=== PATIENT | male | born 1935 | race Caucasian/White ===

== ENCOUNTER 2018-05-13 20:12 | Emergency (ER) | payer OTHER ==
--- OUTSIDE RECORDS SUMMARY | 2018-05-13 20:14 | XMS REPORT | Clinical Summary ---
:1935 Author Organization [facility] Address [address] [place] [address] Phone Care Team Providers Name Role Phone Unavailable Primary Care Provider Unavailable Allergies No Known Allergies Current Medications Prescription Sig. Disp. Refills Start Date End Date Status donepezil (ARICEPT) 10 Take 10 mg by mouth Active MG tablet nightly. aspirin 81 MG EC tablet Take 81 mg by mouth Active daily. atorvastatin (LIPITOR) Take 20 mg by mouth Active 20 MG tablet daily. citalopram (CELEXA) 40 Take 40 mg by mouth Active MG tablet daily. cyanocobalamin 1000 MCG Take 1,000 mcg by Active tablet mouth daily. lisinopril-hydrochloroth Take 1 tablet by Active iazide mouth daily. (PRINZIDE,ZESTORETIC) 10-12.5 mg per tablet meclizine (ANTIVERT) 25 Take 12.5 mg by Active MG tablet mouth 3 (three) times daily as needed. prazosin (MINIPRESS) 2 Take 4 mg by mouth Active MG capsule nightly. Missing or Non-Formulary Take 0.125 mg by Active Medication mouth every 4 (four) hours Hycosamine 0.125 mg, 0.5 tablet every 4 hours.. pantoprazole (PROTONIX) Take 1 tablet (40 mg 0 12/21/2015 Active 40 MG tablet total) by mouth daily. 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
[2018-05-13] MEDS ORDERED: ONDANSETRON 4 MG/2 ML VIAL ONE (21:06)
[2018-05-13] MEDS ORDERED: NA CHLORIDE 0.9% 500 ML ONE (21:06)
[2018-05-13 21:07] LABS: Absolute Lymphocytes (CBC) 1.9 K/uL (0.7-4.9); Absolute Monocytes 0.6 K/uL (0.1-1.3); Absolute Neutrophil 5.7 K/uL (1.8-8.0); Basophils % 0.5 % (0-1.3); Eosinophils % 1.7 % (0-4.4); Hematocrit 41.2 % (39.6-49.0); Lymphocytes % 22.4 % (15.3-44.8); MPV 7.7 fL (7.6-11.3); Monocytes % 7.7 % (3.3-12.3); RBC Red Blood Cell Count 4.74 M/uL (4.33-5.43)
[2018-05-13 21:26] LABS: Albumin 3.4 g/dL (3.4-5.0); Bilirubin Total 0.7 mg/dL (0.2-1.0); Potassium 4.1 mmol/L (3.5-5.1); Protein, Total 7.1 g/dL (6.4-8.2)
--- NOTE | 2018-05-13 23:04 | ER ---
Nurse's Notes [facility] Name: Nikita Mcclure Sr Age: 82 yrs Sex: Male : 1935 Arrival Date: 05/13/2018 Time: 20:19 Bed 20 Private MD: Diagnosis: Diarrhea, unspecified Presentation: 05/13 20:37 Presenting complaint: Patient states: "My diarrhea I have normally because of all my jd3 surgeries, has gotten worse over the last couple of days." EMS states: " he says he has been having some diarrhea for a while now. only pain he is reporting is the chronic wrist, back, and ankle pain.". Transition of care: patient was not received from another setting of care. Onset of symptoms was May 13, 2018. Risk Assessment: Do you want to hurt yourself or someone else? Patient reports no desire to harm self or others. Initial Sepsis Screen: Does the patient meet any 2 criteria? No. Patient's initial sepsis screen is negative. Does the patient have a suspected source of infection? No. Patient's initial sepsis screen is negative. Care prior to arrival: None. 20:37 Method Of Arrival: EMS: [facility] jd3 20:37 Acuity: MICKEY 3 jd3 Historical: - Allergies: 20:43 No Known Allergies; jd3 - Home Meds: 20:43 aspirin 81 mg Oral tab 1 tab once daily [Active]; lisinopril-hydrochlorothiazide jd3 10-12.5 mg Oral tab 1 tab once daily [Active]; 21:59 atorvastatin 80 mg oral tab 1 tab once daily [Active]; buspirone 10 mg Oral tab 1 tab 3 jd3 times per day [Active]; citalopram 40 mg tab 0.5 tab once daily [Active]; donepezil 10 mg Oral tab 1 tab once daily [Active]; meclizine 12.5 mg Oral tab 1 tabs 3 times per day [Active]; omeprazole 20 mg oral TbEC 20 mg daily [Active]; prazosin 2 mg Oral cap 2 caps nightly [Active]; trazodone 100 mg oral tab 1 tab nightly [Active]; cholecalciferol (vitamin D3) 400 unit oral tab three times a day [Active]; diclofenac sodium 1 % topical gel twice a day [Active]; lidocaine 5 % topical ptmd 1 patch once daily [Active]; naloxone nasal nasal 1 spray as needed [Active]; nutrition supl ensure 1 drink 1 can twice a day [Active]; trazodone 50 mg Oral tab 0.5 tab 2 times per day [Active]; - PMHx: 20:43 Anemia; Hyperlipidemia; Hypertension; Head injury; insomnia; Anxiety; Dementia; jd3 Depression; GERD; Vertigo; - PSHx: 20:43 back surgery; brain surgery; abd sx; jd3 21:59 abd stent; jd3 - Immunization history:: Adult Immunizations up to date, Flu vaccine is up to date. - Social history:: Smoking status: Patient/guardian denies using tobacco. - Ebola Screening: : Patient negative for fever greater than or equal to 101.5 degrees Fahrenheit, and additional compatible Ebola Virus Disease symptoms. Screenin:44 Abuse screen: Denies threats or abuse. Nutritional screening: No deficits noted. jd3 Tuberculosis screening: No symptoms or risk factors identified. Fall Risk Ambulatory Aid- Crutches/Cane/Walker (15 pts). Gait- Weak (10 pts.). Mental Status- Oriented to own ability (0 pts). Total Wilkinson Fall Scale indicates Low Risk Score (25-44 pts). Fall prevention measures have been instituted. Side Rails Up X 2 Placed close to Nursing Station Frequent Obs/Assesments occuring Family Present and informed to notify staff if they need to leave bedside. Assessment: 20:45 General: Appears in no apparent distress. uncomfortable, Behavior is cooperative, jd3 appropriate for age, anxious. Pain: Complains of pain in wrist, ankles, back Quality of pain is described as aching, Is chronic. Neuro: Level of Consciousness is awake, alert, obeys commands, Oriented to person, place, time, situation. Cardiovascular: Capillary refill < 3 seconds Patient's skin is warm and dry. Respiratory: Airway is patent Respiratory effort is even, unlabored, Respiratory pattern is regular, symmetrical. GI: Abdomen is round Bowel sounds present X 4 quads. Abd is soft and non tender X 4 quads. Reports diarrhea, nausea. : No signs and/or symptoms were reported regarding the genitourinary system. EENT: No signs and/or symptoms were reported regarding the EENT system. Derm: Skin is intact, Skin is dry, Skin is normal, Skin temperature is warm. Musculoskeletal: Circulation, motion, and sensation intact. Range of motion: intact in all extremities. 21:34 Reassessment: Patient appears in no apparent distress at this time. No changes from jd3 previously documented assessment. Patient and/or family updated on plan of care and expected duration. Pain level reassessed. Patient is alert, oriented x 3, equal unlabored respirations, skin warm/dry/pink. 22:26 Reassessment: Patient appears in no apparent distress at this time. No changes from jd3 previously documented assessment. Patient and/or family updated on plan of care and expected duration. Pain level reassessed. Patient is alert, oriented x 3, equal unlabored respirations, skin warm/dry/pink. 23:23 Reassessment: Patient appears in no apparent distress at this time. Patient and/or jd3 family updated on plan of care and expected duration. Pain level reassessed. Patient is alert, oriented x 3, equal unlabored respirations, skin warm/dry/pink. reported understanding of discharge instructions. Vital Signs: 20:43 BP 149 / 95; Pulse 68; Resp 17 S; Temp 98.3(O); Pulse Ox 97% on R/A; Weight 105.23 kg jd3 (R); Height 6 ft. 1 in. (185.42 cm) (R); Pain 5/10; 21:33 BP 126 / 54; Pulse 64; Resp 16 S; Pulse Ox 97% on R/A; jd3 22:26 BP 118 / 59; Pulse 60; Resp 17 S; Pulse Ox 97% on R/A; jd3 20:43 Body Mass Index 30.61 (105.23 kg, 185.42 cm) jd3 ED Course: 20:19 Patient arrived in ED. ds1 20:19 Robbie Dawkins MD is Attending Physician. tw4 20:36 Estiven Christensen RN is Primary Nurse. jd3 20:40 Triage completed. jd3 20:44 Arm band placed on. jd3 20:45 Patient has correct armband on for positive identification. Placed in gown. Bed in low jd3 position. Call light in reach. Side rails up X2. Adult w/ patient. 20:55 Inserted saline lock: 22 gauge in right antecubital area, using aseptic technique. jd3 Blood collected. 22:12 Warm blanket given. Pillow given. jd3 23:23 No provider procedures requiring assistance completed. IV discontinued, intact, jd3 bleeding controlled, No redness/swelling at site. Pressure dressing applied. Administered Medications: 21:06 Drug: Zofran 4 mg Route: IVP; Site: right antecubital; jd3 22:12 Follow up: Response: No adverse reaction jd3 21:07 Drug: NS 0.9% 500 ml Route: IV; Rate: bolus; Site: right antecubital; jd3 23:25 Follow up: Response: No adverse reaction; IV Status: Completed infusion; IV Intake: jd3 500ml Intake: 23:25 IV: 500ml; Total: 500ml. jd3 Outcome: 23:03 Discharge ordered by . tw4 23:24 Discharged to home via wheelchair, with family. jd3 23:24 Condition: stable 23:24 Discharge instructions given to patient, Instructed on discharge instructions, follow up and referral plans. medication usage, Demonstrated understanding of instructions, follow-up care, medications, Prescriptions given X 1. 23:25 Patient left the ED. jd3 Signatures: Kasey Lambert ds1 Estiven Christensen RN RN jd3 Robbie Dawkins MD MD tw4 Corrections: (The following items were deleted from the chart) 20:43 Home Meds: atorvastatin 20 mg Oral tab 1 tab nightly; jd3 jd3 20:43 Home Meds: buspirone 10 mg Oral tab 1 tab 3 times per day; jd3 jd3 59 20:43 Home Meds: citalopram 40 mg tab 1 tab once daily; jd3 jd3 59 20:43 Home Meds: cyanocobalamin (vitamin B-12) 1,000 mcg Oral tab daily for Anemia; jd3 jd3 59 20:43 Home Meds: donepezil 10 mg Oral tab 0.5 tab once daily; jd3 jd3 20:43 Home Meds: Hycosamine 0.125 mg 0.5 tab every 4 hours; jd3 jd3 2159 20:43 Home Meds: meclizine 12.5 mg Oral tab 3 tabs 3 times per day; jd3 jd3 20:43 Home Meds: omeprazole 20 mg Oral cpDR 2 caps once daily; jd3 jd3 59 20:43 Home Meds: prazosin 2 mg Oral cap 2 caps nightly; jd3 jd3 59 20:43 Home Meds: trazodone 150 mg Oral tab 1 tab nightly; jd3 jd3
--- NOTE | 2018-05-13 23:04 | EDPHYS ---
Physician Documentation [facility] Name: Nikita Mcclure Sr Age: 82 yrs Sex: Male : 1935 Arrival Date: 05/13/2018 Time: 20:19 Bed 20 Private MD: ED Physician Robbie Dawkins HPI: 05/14 03:48 This 82 yrs old Male presents to ER via EMS with complaints of Abdominal tw4 Pain, Diarrhea. 03:48 The patient presents to the emergency department with diarrhea. Onset: The tw4 symptoms/episode began/occurred 6 month(s) ago. Possible causes: unknown. The symptoms are aggravated by nothing. The symptoms are alleviated by nothing. Associated signs and symptoms: The patient has no apparent associated signs or symptoms. Severity of symptoms: At their worst the symptoms were moderate in the emergency department the symptoms are unchanged. The patient has not experienced similar symptoms in the past. Historical: - Allergies: 05/13 20:43 No Known Allergies; jd3 - Home Meds: 20:43 aspirin 81 mg Oral tab 1 tab once daily [Active]; lisinopril-hydrochlorothiazide jd3 10-12.5 mg Oral tab 1 tab once daily [Active]; 21:59 atorvastatin 80 mg oral tab 1 tab once daily [Active]; buspirone 10 mg Oral tab 1 tab 3 jd3 times per day [Active]; citalopram 40 mg tab 0.5 tab once daily [Active]; donepezil 10 mg Oral tab 1 tab once daily [Active]; meclizine 12.5 mg Oral tab 1 tabs 3 times per day [Active]; omeprazole 20 mg oral TbEC 20 mg daily [Active]; prazosin 2 mg Oral cap 2 caps nightly [Active]; trazodone 100 mg oral tab 1 tab nightly [Active]; cholecalciferol (vitamin D3) 400 unit oral tab three times a day [Active]; diclofenac sodium 1 % topical gel twice a day [Active]; lidocaine 5 % topical ptmd 1 patch once daily [Active]; naloxone nasal nasal 1 spray as needed [Active]; nutrition supl ensure 1 drink 1 can twice a day [Active]; trazodone 50 mg Oral tab 0.5 tab 2 times per day [Active]; - PMHx: 20:43 Anemia; Hyperlipidemia; Hypertension; Head injury; insomnia; Anxiety; Dementia; jd3 Depression; GERD; Vertigo; - PSHx: 20:43 back surgery; brain surgery; abd sx; jd3 21:59 abd stent; jd3 - Immunization history:: Adult Immunizations up to date, Flu vaccine is up to date. - Social history:: Smoking status: Patient/guardian denies using tobacco. - Ebola Screening: : Patient negative for fever greater than or equal to 101.5 degrees Fahrenheit, and additional compatible Ebola Virus Disease symptoms. ROS: 05/14 03:48 Constitutional: Negative for fever, chills, and weight loss, Cardiovascular: Negative tw4 for chest pain, palpitations, and edema, Respiratory: Negative for shortness of breath, cough, wheezing, and pleuritic chest pain, Back: Negative for injury and pain, MS/Extremity: Negative for injury and deformity, Skin: Negative for injury, rash, and discoloration, Neuro: Negative for headache, weakness, numbness, tingling, and seizure. Abdomen/GI: Positive for diarrhea, Negative for abdominal pain, nausea and vomiting, nausea, vomiting, and diarrhea, nausea, vomiting. Exam: 03:48 Constitutional: This is a well developed, well nourished patient who is awake, alert, tw4 and in no acute distress. Head/Face: Normocephalic, atraumatic. Chest/axilla: Normal chest wall appearance and motion. Nontender with no deformity. No lesions are appreciated. Cardiovascular: Regular rate and rhythm with a normal S1 and S2. No gallops, murmurs, or rubs. Normal PMI, no JVD. No pulse deficits. Respiratory: Lungs have equal breath sounds bilaterally, clear to auscultation and percussion. No rales, rhonchi or wheezes noted. No increased work of breathing, no retractions or nasal flaring. Abdomen/GI: Soft, non-tender, with normal bowel sounds. No distension or tympany. No guarding or rebound. No evidence of tenderness throughout. Back: No spinal tenderness. No costovertebral tenderness. Full range of motion. MS/ Extremity: Pulses equal, no cyanosis. Neurovascular intact. Full, normal range of motion. Neuro: Awake and alert, GCS 15, oriented to person, place, time, and situation. Cranial nerves II-XII grossly intact. Motor strength 5/5 in all extremities. Sensory grossly intact. Cerebellar exam normal. Normal gait. Vital Signs: 05/13 20:43 BP 149 / 95; Pulse 68; Resp 17 S; Temp 98.3(O); Pulse Ox 97% on R/A; Weight 105.23 kg jd3 (R); Height 6 ft. 1 in. (185.42 cm) (R); Pain 5/10; 21:33 BP 126 / 54; Pulse 64; Resp 16 S; Pulse Ox 97% on R/A; jd3 22:26 BP 118 / 59; Pulse 60; Resp 17 S; Pulse Ox 97% on R/A; jd3 20:43 Body Mass Index 30.61 (105.23 kg, 185.42 cm) jd3 MDM: 20:19 Patient medically screened. tw4 05/14 03:48 Data reviewed: vital signs, nurses notes. Data interpreted: Pulse oximetry: tw4 Interpretation: normal. Counseling: I had a detailed discussion with the patient and/or guardian regarding: the historical points, exam findings, and any diagnostic results supporting the discharge/admit diagnosis. 04:01 Differential diagnosis: Nonspecific abd pain, gastritis. Special discussion: I tw4 discussed with the patient/guardian in detail that at this point there is no indication for admission to the hospital. It is understood, however, that if the symptoms persist or worsen the patient needs to return immediately for re-evaluation. 05/13 20:21 Order name: CBC with Diff; Complete Time: 21:52 tw4 05/13 20:21 Order name: CMP; Complete Time: 21:52 tw4 05/13 21:53 Interpretation: Normal except: BUN 22; GFR 64. tw4 05/13 20:21 Order name: Saline Lock; Complete Time: 20:58 tw4 Administered Medications: 05/13 21:06 Drug: Zofran 4 mg Route: IVP; Site: right antecubital; jd3 22:12 Follow up: Response: No adverse reaction jd3 21:07 Drug: NS 0.9% 500 ml Route: IV; Rate: bolus; Site: right antecubital; jd3 23:25 Follow up: Response: No adverse reaction; IV Status: Completed infusion; IV Intake: jd3 500ml Disposition: 05/13/18 23:03 Discharged to Home. Impression: Diarrhea, unspecified. - Condition is Stable. - Discharge Instructions: Diarrhea, Adult. - Prescriptions for Lomotil 2.5- 0.025 mg Oral Tablet - take 2 tablet by ORAL route once daily As needed; 20 tablet. - Medication Reconciliation Form, Thank You Letter, Antibiotic Education, Prescription Opioid Use form. - Follow up: Private Physician; When: Upon discharge from the Emergency Department; Reason: Recheck today's complaints, Continuance of care. - Problem is new. - Symptoms have improved. Signatures: Dispatcher [employer] Estiven Elizalde RN RN [email or web address] Robbie Dawkins MD MD tw4 Corrections: (The following items were deleted from the chart) 21:59 20:43 Home Meds: atorvastatin 20 mg Oral tab 1 tab nightly; [place] [id number] 21:59 20:43 Home Meds: buspirone 10 mg Oral tab 1 tab 3 times per day; [place] [id number] 21:59 20:43 Home Meds: citalopram 40 mg tab 1 tab once daily; [facility] j 21:59 20:43 Home Meds: cyanocobalamin (vitamin B-12) 1,000 mcg Oral tab daily for Anemia; [facility] jd3 21:59 20:43 Home Meds: donepezil 10 mg Oral tab 0.5 tab once daily; [facility] j 21:59 20:43 Home Meds: Hycosamine 0.125 mg 0.5 tab every 4 hours; [facility] j 21:59 20:43 Home Meds: meclizine 12.5 mg Oral tab 3 tabs 3 times per day; [facility] j 21:59 20:43 Home Meds: omeprazole 20 mg Oral cpDR 2 caps once daily; [facility] j 21:59 20:43 Home Meds: prazosin 2 mg Oral cap 2 caps nightly; [facility] j 21:59 20:43 Home Meds: trazodone 150 mg Oral tab 1 tab nightly; [facility] j 23:25 23:03 05/13/2018 23:03 Discharged to Home. Impression: Diarrhea, unspecified. Condition jd3 is Stable. Forms are Medication Reconciliation Form, Thank You Letter, Antibiotic Education, Prescription Opioid Use. Follow up: Private Physician; When: Upon discharge from the Emergency Department; Reason: Recheck today's complaints, Continuance of care. Problem is new. Symptoms have improved. tw4
== END 2018-05-13 23:25 | disposition home or self-care (01) ==
LOC: ER 20:12
DX: R19.7 Diarrhea, unspecified (principal); I10 Essential (primary) hypertension; E78.5 Hyperlipidemia, unspecified; F41.9 Anxiety disorder, unspecified; F32.9 Major depressive disorder, single episode, unspecified; F03.90 Unspecified dementia, unspecified severity, without behavioral disturbance, psychotic disturbance, mood disturbance, and anxiety; Z79.82 Long term (current) use of aspirin
CPT/HCPCS: 36415; 80053; 85025; 96361; 96374; 99284; J2405

== ENCOUNTER 2018-10-28 18:28 | Inpatient (IN) | payer OTHER ==
--- OUTSIDE RECORDS SUMMARY | 2018-10-28 18:30 | XMS REPORT | Clinical Summary ---
:1935 Author Organization [facility] Address [address] [place] [address] Care Team Providers Name Role Phone Brennen Wiseman Primary Care Provider Allergies No Known Allergies Medications Medication Sig Dispensed Refills Start Date End Date Status donepezil (ARICEPT) 10 Take 10 mg by 0 Active MG tablet mouth nightly. aspirin 81 MG EC Take 81 mg by 0 Active tablet mouth daily. atorvastatin (LIPITOR) Take 20 mg by 0 Active 20 MG tablet mouth daily. citalopram (CELEXA) 40 Take 40 mg by 0 Active MG tablet mouth daily. cyanocobalamin 1000 Take 1,000 mcg by 0 Active MCG tablet mouth daily. lisinopril-hydrochloro Take 1 tablet by 0 Active thiazide mouth daily. (PRINZIDE,ZESTORETIC) 10-12.5 mg per tablet meclizine (ANTIVERT) Take 12.5 mg by 0 Active 25 MG tablet mouth 3 (three) times daily as needed. prazosin (MINIPRESS) 2 Take 4 mg by mouth 0 Active MG capsule nightly. Missing or Take 0.125 mg by 0 Active Non-Formulary mouth every 4 Medication (four) hours Hycosamine 0.125 mg, 0.5 tablet every 4 hours.. pantoprazole Take 1 tablet (40 0 12/21/2015 Active (PROTONIX) 40 MG mg total) by mouth tablet daily. Active Problems Problem Noted Date Leukocytosis 12/13/2015 Hypokalemia 12/13/2015 Cholelithiasis 12/13/2015 Pancreatitis 12/12/2015 Dementia Anxiety GERD (gastroesophageal reflux disease) Depression Social History Tobacco Use Types Packs/Day Years Used Date Never Smoker Smokeless Tobacco: Never Used Tobacco Cessation: Counseling Given: No Alcohol Use Drinks/Week oz/Week Comments No Sex Assigned at Date Recorded Not on file Job Start Date Occupation Industry Not on file Not on file Not on file Travel History Travel Start Travel End No recent travel history available. 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 Shelf Model / Identifier Expiration Serial / Lot Date Stent Panc Advx St [id number] - [id number] Stents-Pe [employer] [id number] / Implanted: Qty: 1 on 12/16/2015 by Aayush Canchola MD [facility] / [id number] Results Not on fileafter 10/27/2017 Insurance Payer Benefit Plan / Group Subscriber ID Type Phone Address MEDICARE MEDICARE A B xxxxxxxxxx Medicare AETNA - [employer]GD CARE A[employer] INDEMNITY NON CONTR xxxxxxxxx [address] [place] [address] Advance Directives For more information, please contact:[address] [phone] Code Status Date Activated Date Inactivated Comments Full Code 12/12/2015 10:10 AM 12/22/2015 7:47 PM This code status was determined by: Patient
--- NOTE | 2018-10-28 20:31 | RAD REPORT ---
EXAM DESCRIPTION: RAD - Chest Single View - 10/28/2018 8:23 pm CLINICAL HISTORY: MALAISE Chest pain. COMPARISON: CHEST PA AND LAT 2 VIEW dated 10/22/2008 FINDINGS: Portable technique limits examination quality. The lungs are grossly clear. The heart is normal in size. No displaced fractures. IMPRESSION: No acute intrathoracic process suspected.
[2018-10-28 20:33] LABS: Absolute Lymphocytes (CBC) 1.4 K/uL (0.7-4.9); Absolute Neutrophil 14.6 K/uL (1.8-8.0); Basophils % 0.6 % (0-1.3); Eosinophils % 0.2 % (0-4.4); Hematocrit 36.9 % (39.6-49.0); Lymphocytes % 8.2 % (15.3-44.8); MPV 7.6 fL (7.6-11.3); Monocytes % 5.8 % (3.3-12.3); RBC Red Blood Cell Count 4.32 M/uL (4.33-5.43)
[2018-10-28 20:34] LABS: Urine RBC NONE SEEN /HPF (NONE SEEN)
[2018-10-28 20:35] LABS: Urine Bacteria 20-50 /HPF (NONE SEEN); Urine Culture Reflex Order REFLEXED
[2018-10-28 20:36] LABS: Protime INR 1.28
[2018-10-28 20:55] LABS: ALT/SGPT 29 U/L (12-78); AST/SGOT 25 U/L (15-37); Albumin 2.1 g/dL (3.4-5.0); Alkaline Phosphatase 81 U/L (45-117); BUN Blood Urea Nitrogen 40 mg/dL (7-18); Bicarbonate 30 mmol/L (21-32); Bilirubin Direct 0.2 mg/dL (0-0.2); Bilirubin Total 0.7 mg/dL (0.2-1.0); Glucose Level 130 mg/dL (74-106); NT PRO-BNP 588 pg/mL (<450); Protein, Total 6.5 g/dL (6.4-8.2); Sodium Level 134 mmol/L (136-145); Troponin (Emerg Dept Use Only) < 0.02 ng/mL (0.0-0.045)
[2018-10-28 21:04] LABS: Potassium 2.9 mmol/L (3.5-5.1)
[2018-10-28 21:11] LABS: Urine Blood NEGATIVE (NEG); Urine Glucose NEGATIVE (NEG); Urine Protein NEGATIVE (NEG); Urine pH 5.5 (5.0-7.0)
[2018-10-28 21:11] LABS: Blood Morphology Comment NOT SEEN (NOT SEEN); Platelet Estimate ADEQ
[2018-10-28] MEDS ORDERED: POTASSIUM 25 MEQ EFFERV TAB ONE (21:24)
[2018-10-28] MEDS ORDERED: NA CHLORIDE 0.9% 1,000 ML ONE (22:31)
--- NOTE | 2018-10-28 23:58 | EDPHYS ---
Physician Documentation [facility] Name: Nikita Mcclure Sr Age: 83 yrs Sex: Male : 1935 Arrival Date: 10/28/2018 Time: 18:31 Bed 16 Private MD: ED Physician Stuart Kendall HPI: 10/28 23:50 This 83 yrs old Male presents to ER via Wheelchair with complaints of gs Decreased Appetite, Fatigue. 23:50 The patient presents to the emergency department with weakness of the entire body, gs generalized weakness. Onset: The symptoms/episode began/occurred gradually, 3 week(s) ago, and became worse and became persistent. Associated signs and symptoms: Pertinent positives: weakness. Severity of symptoms: At their worst the symptoms were moderate in the emergency department the symptoms are unchanged. The patient has experienced similar episodes in the past, multiple times. Historical: - Allergies: 18:41 No Known Allergies; ss - Home Meds: 23:10 allopurinol 100 mg Oral tab 1 tab once daily [Active]; aspirin 81 mg Oral tab 1 tab aa1 once daily [Active]; buspirone 10 mg Oral tab 1 tab 3 times per day [Active]; cholecalciferol (vitamin D3) 400 unit Oral tab 3 tab daily [Active]; citalopram 40 mg tab 0.5 tab once daily [Active]; diclofenac sodium 1 % Topical gel twice a day [Active]; ezetimibe oral oral 1 tab once daily [Active]; lisinopril-hydrochlorothiazide 10-12.5 mg Oral tab 1 tab once daily [Active]; [place] 5-325 mg Oral tab 1 tab every 8 hours [Active]; lidocaine 5 % Topical ptmd 1 patch once daily [Active]; meclizine 12.5 mg Oral tab 1 tabs 3 times per day [Active]; naloxone nasal 1 spray as needed [Active]; omega-3 acid ethyl esters 1 gram oral cap 2 caps 2 times per day [Active]; omeprazole 20 mg Oral TbEC 20 mg daily [Active]; prazosin 2 mg Oral cap 2 caps nightly [Active]; trazodone 100 mg Oral tab 1 tab nightly [Active]; trazodone 50 mg Oral tab 0.5 tab 2 times per day [Active]; nutrition supl ensure 1 drink 1 can twice a day [Active]; - PMHx: 18:41 Anemia; Anxiety; Dementia; Depression; GERD; Head injury; Hyperlipidemia; Hypertension; ss insomnia; Vertigo; - PSHx: 18:41 back surgery; brain surgery; abd stent; ss - Immunization history:: Adult Immunizations up to date. - Social history:: Smoking status: Patient/guardian denies using tobacco. - Ebola Screening: : Patient denies exposure to infectious person Patient denies travel to an Ebola-affected area in the 21 days before illness onset. ROS: 23:50 All other systems are negative. gs Exam: 23:50 Head/Face: Normocephalic, atraumatic. Eyes: Pupils equal round and reactive to light, gs extra-ocular motions intact. Lids and lashes normal. Conjunctiva and sclera are non-icteric and not injected. Cornea within normal limits. Periorbital areas with no swelling, redness, or edema. ENT: Nares patent. No nasal discharge, no septal abnormalities noted. Tympanic membranes are normal and external auditory canals are clear. Oropharynx with no redness, swelling, or masses, exudates, or evidence of obstruction, uvula midline. Mucous membranes moist. Neck: Trachea midline, no thyromegaly or masses palpated, and no cervical lymphadenopathy. Supple, full range of motion without nuchal rigidity, or vertebral point tenderness. No Meningismus. Chest/axilla: Normal chest wall appearance and motion. Nontender with no deformity. No lesions are appreciated. Cardiovascular: Regular rate and rhythm with a normal S1 and S2. No gallops, murmurs, or rubs. Normal PMI, no JVD. No pulse deficits. Respiratory: Lungs have equal breath sounds bilaterally, clear to auscultation and percussion. No rales, rhonchi or wheezes noted. No increased work of breathing, no retractions or nasal flaring. 23:50 Back: No spinal tenderness. No costovertebral tenderness. Full range of motion. Skin: Warm, dry with normal turgor. Normal color with no rashes, no lesions, and no evidence of cellulitis. Neuro: Awake and alert, GCS 15, oriented to person, place, time, and situation. Cranial nerves II-XII grossly intact. Motor strength 5/5 in all extremities. Sensory grossly intact. Cerebellar exam normal. Normal gait. 23:50 Constitutional: The patient appears alert, awake. 23:50 Abdomen/GI: Inspection: obese Palpation: mild abdominal tenderness, in all quadrants, rebound tenderness, is not appreciated. 23:50 Musculoskeletal/extremity: Pulses: are normal with no appreciated deficits, Edema, 1+ to the left ankle and right ankle is noted. Vital Signs: 18:41 BP 105 / 52; Pulse 96; Resp 16; Temp 98.0(TE); Pulse Ox 97% on R/A; Weight 105.23 kg; ss Height 6 ft. 1 in. (185.42 cm); Pain 8/10; 19:42 BP 129 / 51; Pulse 85; Resp 18; Pulse Ox 95% on R/A; aa1 20:31 BP 122 / 63; Pulse 74; Resp 16; Pulse Ox 99% on R/A; mt 21:21 BP 134 / 63; Pulse 76; Resp 18; Pulse Ox 97% on R/A; aa1 22:45 BP 119 / 62; Pulse 76; Resp 16; Temp 98.1; Pulse Ox 95% on R/A; Pain 0/10; aa1 23:38 BP 122 / 65; Pulse 73; Resp 18; Pulse Ox 97% on R/A; aa1 10/29 00:30 BP 117 / 60; Pulse 69; Resp 16; Temp 97.9; Pulse Ox 97% on R/A; Pain 0/10; aa1 10/28 18:41 Body Mass Index 30.61 (105.23 kg, 185.42 cm) ss MDM: 10/28 19:50 Patient medically screened. gs 23:50 Data reviewed: vital signs, nurses notes. Data reviewed: old medical records, lab test gs result(s), EKG, radiologic studies, and as a result, I will admit patient. Response to treatment: the patient's symptoms have mildly improved after treatment. 10/28 19:49 Order name: Basic Metabolic Panel; Complete Time: 21:48 aa10/28 19:49 Order name: CBC with Diff; Complete Time: 21:48 aa10/28 19:49 Order name: LFT's; Complete Time: 21:48 aa10/28 19:49 Order name: Magnesium; Complete Time: 21:48 aa10/28 19:49 Order name: NT PRO-BNP; Complete Time: 21:48 [facility] 10/28 19:49 Order name: PT-INR; Complete Time: 21:48 [facility] 10/28 19:49 Order name: Troponin (emerg Dept Use Only); Complete Time: 21:48 [facility] 10/28 19:51 Order name: Urine Microscopic Only; Complete Time: 21:48 10/28 21:51 Interpretation: Abnormal. 10/28 20:35 Order name: Urine Dipstick--Ancillary (enter results) ar 10/28 20:37 Order name: Urine Culture [facility] 10/28 20:43 Order name: Manual Differential; Complete Time: 21:48 EDMS 10/28 21:55 Order name: Blood Culture* 10/29 00:17 Order name: CBC with Automated Diff [facility] 10/29 00:17 Order name: Comprehensive Metabolic Panel [facility] 10/28 19:49 Order name: XRAY Chest (1 view); Complete Time: 21:48 [facility] 10/28 19:49 Order name: EKG; Complete Time: 19:50 [facility] 10/28 19:49 Order name: Cardiac monitoring; Complete Time: 20:15 [facility] 10/28 19:49 Order name: EKG - Nurse/Tech; Complete Time: 20:01 [facility] 10/28 19:49 Order name: IV Saline Lock; Complete Time: 22:43 [facility] 10/28 19:49 Order name: Labs collected and sent; Complete Time: 20:15 [facility] 10/28 19:49 Order name: O2 Per Protocol; Complete Time: 20:01 [facility] 10/28 19:49 Order name: O2 Sat Monitoring; Complete Time: 20:02 [facility] 10/28 19:51 Order name: Urine Dipstick-Ancillary (obtain specimen); Complete Time: 20:15 10/29 00:17 Order name: CONS Pharmacy Consult [facility] 10/29 00:17 Order name: NPO [facility] 10/29 00:17 Order name: Dietitian Consult [facility] Administered Medications: 21:16 Drug: K-Lyte Effervescent Tablet 50 mEq Route: PO; aa1 22:42 Follow up: Response: No adverse reaction aa1 22:42 Drug: NS 0.9% 1000 ml Route: IV; Rate: 1 bolus; Site: right antecubital; aa1 23:30 Follow up: IV Status: Completed infusion aa1 Disposition: 10/28/18 23:58 Hospitalization ordered by Corey Nascimento for Observation. Preliminary diagnosis is Dehydration. - Bed requested for Telemetry/MedSurg (observation). - Status is Observation. iw - Condition is Stable. - Problem is new. - Symptoms have improved. UTI on Admission? Yes Signatures: Dispatcher [employer] EDKala Rudolph RN RN Zeina Hernandez RN RN aa1 Bita Mahmood RN RN bb Williams, Irene, RN RN Annalisa Anderson RN RN Stuart Kendall MD MD Corrections: (The following items were deleted from the chart) 23:59 23:58 Hospitalization Ordered by Corey Nascimento MD for Observation. Preliminary bb diagnosis is Dehydration. Bed requested for Telemetry/MedSurg (observation). Status is Observation. Condition is Stable. Problem is new. Symptoms have improved. UTI on Admission? Yes. 10/29 06:32 10/28 23:59 10/28/2018 23:58 Hospitalization Ordered by Corey Nascimento MD for Observation. Preliminary diagnosis is Dehydration. Bed requested for [facility] ER HOLD. Status is Observation. Condition is Stable. Problem is new. Symptoms have improved. UTI on Admission? Yes. bb 10/29 07:58 06:32 10/28/2018 23:58 Hospitalization Ordered by Corey Nascimento MD for Observation. iw Preliminary diagnosis is Dehydration. Bed requested for Telemetry/MedSurg (observation). Status is Observation. Condition is Stable. Problem is new. Symptoms have improved. UTI on Admission? Yes. kl
--- NOTE | 2018-10-28 23:58 | ER ---
Nurse's Notes [facility] Name: Nikita Mcclure Sr Age: 83 yrs Sex: Male : 1935 Arrival Date: 10/28/2018 Time: 18:31 Bed 16 Private MD: Diagnosis: Dehydration Presentation: 10/28 18:39 Presenting complaint: states: Decreased appetite, N/V/D and fatigue that began 1 ss month ago. Transition of care: patient was not received from another setting of care. Onset of symptoms was September 2018. Risk Assessment: Do you want to hurt yourself or someone else? Patient reports no desire to harm self or others. Initial Sepsis Screen: Does the patient meet any 2 criteria? HR > 90 bpm. Does the patient have a suspected source of infection? No. Patient's initial sepsis screen is negative. Care prior to arrival: None. 18:39 Method Of Arrival: Wheelchair ss 18:39 Acuity: MICKEY 3 ss Stroke Activation: Symptom onset > 6 hours Physician: Stroke Attending; Name: ; Notified At: ; Arrived At: Physician: Chief Stroke Resident; Name: ; Notified At: ; Arrived At: Physician: Stroke Resident; Name: ; Notified At: ; Arrived At: Physician: ED Attending; Name: ; Notified At: ; Arrived At: Physician: ED Resident; Name: ; Notified At: ; Arrived At: Historical: - Allergies: 18:41 No Known Allergies; ss - Home Meds: 23:10 allopurinol 100 mg Oral tab 1 tab once daily [Active]; aspirin 81 mg Oral tab 1 tab aa1 once daily [Active]; buspirone 10 mg Oral tab 1 tab 3 times per day [Active]; cholecalciferol (vitamin D3) 400 unit Oral tab 3 tab daily [Active]; citalopram 40 mg tab 0.5 tab once daily [Active]; diclofenac sodium 1 % Topical gel twice a day [Active]; ezetimibe oral oral 1 tab once daily [Active]; lisinopril-hydrochlorothiazide 10-12.5 mg Oral tab 1 tab once daily [Active]; Coleman 5-325 mg Oral tab 1 tab every 8 hours [Active]; lidocaine 5 % Topical ptmd 1 patch once daily [Active]; meclizine 12.5 mg Oral tab 1 tabs 3 times per day [Active]; naloxone nasal 1 spray as needed [Active]; omega-3 acid ethyl esters 1 gram oral cap 2 caps 2 times per day [Active]; omeprazole 20 mg Oral TbEC 20 mg daily [Active]; prazosin 2 mg Oral cap 2 caps nightly [Active]; trazodone 100 mg Oral tab 1 tab nightly [Active]; trazodone 50 mg Oral tab 0.5 tab 2 times per day [Active]; nutrition supl ensure 1 drink 1 can twice a day [Active]; - PMHx: 18:41 Anemia; Anxiety; Dementia; Depression; GERD; Head injury; Hyperlipidemia; Hypertension; ss insomnia; Vertigo; - PSHx: 18:41 back surgery; brain surgery; abd stent; ss - Immunization history:: Adult Immunizations up to date. - Social history:: Smoking status: Patient/guardian denies using tobacco. - Ebola Screening: : Patient denies exposure to infectious person Patient denies travel to an Ebola-affected area in the 21 days before illness onset. Screenin:05 Abuse screen: Denies threats or abuse. Denies injuries from another. Nutritional aa1 screening: No deficits noted. Tuberculosis screening: No symptoms or risk factors identified. Fall Risk Ambulatory Aid- Crutches/Cane/Walker (15 pts). Assessment: 19:05 General: Appears in no apparent distress. comfortable, Behavior is calm, cooperative, aa1 appropriate for age. Pain: Complains of pain in neck Is chronic. Neuro: Level of Consciousness is awake, alert, obeys commands, Oriented to person, place, time, situation, Moves all extremities. Speech is normal, Facial symmetry appears normal, Pupils are PERRLA, Intact. Cardiovascular: Denies chest pain, palpitations, shortness of breath, Heart tones S1 S2 present. Respiratory: Airway is patent Respiratory effort is even, unlabored, Respiratory pattern is regular, symmetrical, Breath sounds are clear bilaterally. GI: Reports nausea, decreased appetite. : No signs and/or symptoms were reported regarding the genitourinary system. EENT: No signs and/or symptoms were reported regarding the EENT system. Derm: Skin is intact, is healthy with good turgor, Skin is pink, warm \\T\\ dry. Musculoskeletal: Circulation, motion, and sensation intact. Capillary refill < 3 seconds. 19:42 Reassessment: Patient appears in no apparent distress at this time. Patient and/or aa1 family updated on plan of care and expected duration. Pain level reassessed. Patient is alert, oriented x 3, equal unlabored respirations, skin warm/dry/pink. Pt still awaiting initial assessment from ER provider. 20:30 Reassessment: Patient appears in no apparent distress at this time. Patient and/or aa1 family updated on plan of care and expected duration. Pain level reassessed. Patient is alert, oriented x 3, equal unlabored respirations, skin warm/dry/pink. Awaiting lab results. 20:45 Reassessment: Pt requesting food and water. States, "I'm starving, I haven't had aa1 anything to eat all day." Pt given water and crackers at this time. 22:45 Reassessment: Patient appears in no apparent distress at this time. Patient and/or aa1 family updated on plan of care and expected duration. Pain level reassessed. Patient is alert, oriented x 3, equal unlabored respirations, skin warm/dry/pink. Awaiting provider reassessment. 23:38 Reassessment: Patient appears in no apparent distress at this time. Patient and/or aa1 family updated on plan of care and expected duration. Pain level reassessed. Patient is alert, oriented x 3, equal unlabored respirations, skin warm/dry/pink. Pt still awaiting reassessment and updated POC from ER provider. 10/29 00:30 Reassessment: Patient appears in no apparent distress at this time. Patient and/or aa1 family updated on plan of care and expected duration. Pain level reassessed. Patient is alert, oriented x 3, equal unlabored respirations, skin warm/dry/pink. Pt to be ER hold. Vital Signs: 10/28 18:41 BP 105 / 52; Pulse 96; Resp 16; Temp 98.0(TE); Pulse Ox 97% on R/A; Weight 105.23 kg; ss Height 6 ft. 1 in. (185.42 cm); Pain 8/10; 19:42 BP 129 / 51; Pulse 85; Resp 18; Pulse Ox 95% on R/A; aa1 20:31 BP 122 / 63; Pulse 74; Resp 16; Pulse Ox 99% on R/A; mt 21:21 BP 134 / 63; Pulse 76; Resp 18; Pulse Ox 97% on R/A; aa1 22:45 BP 119 / 62; Pulse 76; Resp 16; Temp 98.1; Pulse Ox 95% on R/A; Pain 0/10; aa1 23:38 BP 122 / 65; Pulse 73; Resp 18; Pulse Ox 97% on R/A; aa1 10/29 00:30 BP 117 / 60; Pulse 69; Resp 16; Temp 97.9; Pulse Ox 97% on R/A; Pain 0/10; aa1 10/28 18:41 Body Mass Index 30.61 (105.23 kg, 185.42 cm) ED Course: 10/28 18:31 Patient arrived in ED. mr 18:39 Triage completed. ss 18:41 Arm band placed on right wrist. ss 19:05 Patient has correct armband on for positive identification. Bed in low position. Call aa1 light in reach. Side rails up X2. Pulse ox on. NIBP on. Warm blanket given. Pillow given. 19:20 Stuart Kendall MD is Attending Physician. gs 19:41 Zeina Hernandez RN is Primary Nurse. aa1 20:20 XRAY Chest (1 view) In Process Unspecified. EDMS 21:14 Notified ED physician of a critical lab result(s). potassium 2.9. aa1 22:24 First set of blood cultures drawn L forearm. Missed attempt(s): 20 gauge in left aa1 forearm. Bleeding controlled, band aid applied, catheter tip intact. 22:39 Second set of blood cultures drawn R AC. Inserted saline lock: 20 gauge in right aa1 antecubital area, using aseptic technique. Blood collected. 23:57 Corey Nascimento MD is Hospitalizing Provider. 10/29 00:30 No provider procedures requiring assistance completed. Patient admitted, IV remains in aa1 place. Administered Medications: 10/28 21:16 Drug: K-Lyte Effervescent Tablet 50 mEq Route: PO; aa1 22:42 Follow up: Response: No adverse reaction aa1 22:42 Drug: NS 0.9% 1000 ml Route: IV; Rate: 1 bolus; Site: right antecubital; aa1 23:30 Follow up: IV Status: Completed infusion aa1 Outcome: 23:58 Decision to Hospitalize by Provider. 10/29 00:30 Admitted to ER Hold. Please see [facility] for further documentation. aa1 Condition: stable Discharge instructions given to patient, family, Instructed on the need for admit, Demonstrated understanding of instructions. 07:58 Patient left the ED. iw Signatures: Dispatcher [employer] EDMS Zeina Hernandez RN RN aa1 Ludmila Akers Irene, RN RN iw Smirch, Shelby, RN RN ss Thompson, Moriah mt Starr, Gregory, MD MD
[2018-10-29] MEDS ORDERED: ONDANSETRON 4 MG/2 ML VIAL IV PRN (00:13)
[2018-10-29] MEDS ORDERED: MORPHINE 2 MG/ML SYR IV PRN (00:13)
[2018-10-29] MEDS ORDERED: KCL 20 MEQ/100 mL IVPB 20 MEQ/100 ML BAG IV SCH (01:00)
[2018-10-29] MEDS ORDERED: NA CHLORIDE 0.9% 1,000 ML ONE (02:11)
[2018-10-29] MEDS ORDERED: KCL 20 MEQ/100 mL IVPB 20 MEQ/100 ML BAG IV ONE (02:12)
[2018-10-29] MEDS: NA CHLORIDE 0.9% 1,000 ML IV SCH ×3 (02:51→20:23)
[2018-10-29 07:40] LABS: Absolute Lymphocytes (CBC) 1.7 K/uL (0.7-4.9); Absolute Neutrophil 12.6 K/uL (1.8-8.0); Basophils % 0.9 % (0-1.3); Eosinophils % 0.2 % (0-4.4); Hematocrit 37.3 % (39.6-49.0); Lymphocytes % 10.9 % (15.3-44.8); MPV 7.4 fL (7.6-11.3); Monocytes % 6.6 % (3.3-12.3); RBC Red Blood Cell Count 4.34 M/uL (4.33-5.43)
[2018-10-29 08:03] LABS: Bilirubin Total 0.7 mg/dL (0.2-1.0); Potassium 3.3 mmol/L (3.5-5.1); Protein, Total 6.3 g/dL (6.4-8.2)
--- NOTE | 2018-10-29 08:35 | P.HP ---
Certification for Inpatient Patient admitted to: Observation With expected LOS: <2 Midnights Patient will require the following post-hospital care: None Practitioner: I am a practitioner with admitting privileges, knowledge of patient current condition, hospital course, and medical plan of care. Services: Services provided to patient in accordance with Admission requirements found in Title 42 Section 412.3 of the Code of Federal Regulations Patient History Date of Service: 10/29/18 Reason for admission: Dehydration; generalized weakness History of Present Illness: Patient is an 83-year-old gentleman who came to the hospital with generalized weakness and fatigue. His appetite has been very poor lately. She said this is been gradually worsening over the last 2-3 weeks. He felt so if weak that he decided to come into the ER for further evaluation. In the emergency room his lab workup revealed he had some acute renal insufficiency and he was malnourished. He was given IV fluids in the emergency room, and his symptoms have improved. Plan to admit the patient to the hospital for further evaluation. Allergies No Known Allergies Allergy (Unverified 12/12/15 08:15) Home Medications: Allopurinol 100 mg PO DAILY 10/29/18 Aspirin Chewable [Aspirin Chewable*] 81 mg PO DAILY 10/29/18 Buspirone HCl [Buspar] 10 mg PO TID 10/29/18 Cholecalciferol (Vitamin D3) [Vitamin D 400 IU TAB] 3 tab PO DAILY 10/29/18 Citalopram Hydrobromide [Celexa] 0.5 tab PO DAILY 10/29/18 Diclofenac Sodium [Diclo Gel] 1 each TP BID 10/29/18 Ezetimibe [Zetia] 10 mg PO DAILY 10/29/18 Hydrocodone 5/APAP 325 [Verdon 5/325] 1 tab PO Q8HR PRN 10/29/18 Lidocaine 5% Patch [Lidoderm 5% Patch] 1 patch TD DAILY 10/29/18 Lisinopril/Hydrochlorothiazide [Lisinopril-Hctz 10-12.5 mg Tab] 1 each PO DAILY 10/29/18 Meclizine HCl [Antivert] 12.5 mg PO TID 10/29/18 Naloxone HCl [Narcan] 4 mg NS PRN PRN 10/29/18 [place]-3 Acid Ethyl Esters 2 cap PO BID 10/29/18 Omeprazole 20 mg PO DAILY 10/29/18 Prazosin HCl 2 cap PO BEDTIME 10/29/18 Trazodone HCl [Desyrel] 100 mg PO BEDTIME 10/29/18 Trazodone [Desyrel] 0.5 tab PO BID PRN 10/29/18 - Past Medical/Surgical History Has patient received pneumonia vaccine in the past: Yes Diabetic: No -: anemia -: anxiety -: dementia -: depression -: GERD -: head injury -: HTN -: hyperlipidemia -: vertigo -: insomnia -: back surgery -: brain surgery -: abdominal stent - Family History Father Family History: Reviewed- Non-Contributory - Social History Smoking Status: Never smoker Alcohol use: No CD- Drugs: No Caffeine use: No Place of Residence: Home Review of Systems 10-point ROS is otherwise unremarkable Physical Examination - Vital Signs Temperature: 98.7 F Blood Pressure: 127/69 Pulse: 69 Respirations: 18 Pulse Ox (%): 96 - Physical Exam General: Alert, In no apparent distress, Oriented x3, Cachectic HEENT: Atraumatic, PERRLA, Mucous membr. moist/pink, EOMI, Sclerae nonicteric Neck: Supple, 2+ carotid pulse no bruit, No LAD, Without JVD or thyroid abnormality Respiratory: Clear to auscultation bilaterally, Normal air movement Cardiovascular: Regular rate/rhythm, Normal S1 S2, No murmurs Gastrointestinal: Normal bowel sounds, Soft and benign, Non-distended, No tenderness Musculoskeletal: No clubbing, No swelling, No tenderness Integumentary: No rashes Neurological: Normal gait, Normal speech, Normal strength at 5/5 x4 extr, Normal tone, Sensation intact, Cranial nerves 3-12 intact, Normal affect Lymphatics: No axilla or inguinal lymphadenopathy - Studies Laboratory Data (last 24 hrs) 10/28/18 20:00: PT 15.0 H, INR 1.28 10/28/18 20:00: WBC 17.2 H, Hgb 12.4 L, Hct 36.9 L, Plt Count 366 10/28/18 20:00: Sodium 134 L, Potassium 2.9 L*, BUN 40 H, Creatinine 1.36 H, Glucose 130 H, Magnesium 2.0, Total Bilirubin 0.7, AST 25, ALT 29, Alkaline Phosphatase 81 Assessment & Plan - Problems (Diagnosis) (1) Dehydration Current Visit: Yes Status: Acute (2) Fatigue Current Visit: Yes Status: Acute (3) Generalized weakness Current Visit: Yes Status: Acute (4) Hypoalbuminemia Current Visit: Yes Status: Acute - Plan Plan: 1. Continue with gentle hydration 2. Dietary consultation 3. Physical therapy evaluation 4. Adjust home medication list 5. Monitor labs closely 6. Strict blood pressure and blood sugar control 7. GI and DVT prophylaxis Discharge Plan: Home Plan to discharge in: 48 Hours - Advance Directives Does patient have a Living Will: No Does patient have a Durable POA for Healthcare: No - Code Status/Comfort Care Code Status Assessed: Yes Code Status: Full Code Critical Care: No Time Spent Managing PTS Care (In Minutes): 45
[2018-10-29] MEDS: DICLOFENAC SODIUM TP SCH ×2 (09:00→20:22)
[2018-10-29] MEDS: PANTOPRAZOLE 40MG TABLET PO SCH (10:00)
[2018-10-29 10:11] LABS: Urine Appearance CLEAR; Urine Bilirubin NEGATIVE (NEG); Urine Blood NEGATIVE (NEG); Urine Color YELLOW; Urine Glucose NEGATIVE (NEG); Urine Protein NEGATIVE (NEG); Urine Urobilinogen 0.2 mg/dL (0.2-1.0)
[2018-10-29 10:23] LABS: Urine Bacteria <20 /HPF (NONE SEEN); Urine Crystals Unidentified FEW (NONE SEEN); Urine Culture Reflex Order NOT NEEDED; Urine RBC <5 /HPF (NONE SEEN)
[2018-10-29] MEDS: BUSPIRONE HCL 5 MG TABLET PO SCH ×3 (10:58→20:21)
[2018-10-29] MEDS: ALLOPURINOL 100 MG TAB PO SCH (10:59)
[2018-10-29] MEDS: CITALOPRAM 10 MG TABLET PO SCH (10:59)
[2018-10-29] MEDS: EZETIMIBE 10 MG TAB PO SCH (10:59)
[2018-10-29] MEDS: ASPIRIN 81 MG CHEWABLE TABLET PO SCH (10:59)
[2018-10-29] MEDS: MECLIZINE HCL 12.5 MG TAB PO SCH ×3 (10:59→20:20)
[2018-10-29] MEDS ORDERED: POTASSIUM CL SA 10 MEQ TAB PO ONE (11:03)
--- NOTE | 2018-10-29 11:45 | EKG ---
Test Date: 2018-10-28 Test Time: 19:56:20 Interior Design Director: JO MEASUREMENT RESULTS: Intervals: Rate: 83 OK: 182 QRSD: 158 QT: 496 QTc: 582 [place]: P: 55 OK: 182 QRS: -67 T: 58 INTERPRETIVE STATEMENTS: Sinus rhythm with premature supraventricular complexes Right bundle branch block Left axis Possible Lateral infarct, age undetermined Abnormal ECG Compared to ECG 02/16/2017 19:09:55 Right bundle-branch block now present Electronically Signed On 10-29-18 10:04:24 CDT by Sonido Lerma
[2018-10-29] MEDS: HYDROCODONE/APAP 5/325 MG TAB PO PRN (11:55)
[2018-10-29] MEDS: VITAMIN D 400 UNIT TAB PO SCH (12:05)
[2018-10-29] MEDS ORDERED: POTASSIUM CL SA 10 MEQ TAB PO SCH (18:02)
[2018-10-29] MEDS: PRAZOSIN HCL 1 MG CAP PO SCH (20:21)
[2018-10-29] MEDS: TRAZODONE 50 MG TABLET PO SCH (20:22)
[2018-10-30] MEDS: NA CHLORIDE 0.9% 1,000 ML IV SCH ×3 (05:39→16:46)
[2018-10-30] MEDS: PANTOPRAZOLE 40MG TABLET PO SCH (05:39)
[2018-10-30 06:21] LABS: Potassium 3.6 mmol/L (3.5-5.1)
[2018-10-30] MEDS ORDERED: POTASSIUM CL SA 10 MEQ TAB PO ONE (09:00)
[2018-10-30] MEDS: DICLOFENAC SODIUM TP SCH ×2 (09:00→20:43)
[2018-10-30] MEDS: ASPIRIN 81 MG CHEWABLE TABLET PO SCH (09:45)
[2018-10-30] MEDS: CITALOPRAM 10 MG TABLET PO SCH (09:45)
[2018-10-30] MEDS: MECLIZINE HCL 12.5 MG TAB PO SCH ×3 (09:45→20:42)
[2018-10-30] MEDS: BUSPIRONE HCL 5 MG TABLET PO SCH ×3 (09:45→20:42)
[2018-10-30] MEDS: ALLOPURINOL 100 MG TAB PO SCH (09:45)
[2018-10-30] MEDS: EZETIMIBE 10 MG TAB PO SCH (09:45)
[2018-10-30] MEDS: VITAMIN D 400 UNIT TAB PO SCH (09:46)
[2018-10-30 12:30] LABS: Absolute Lymphocytes (CBC) 1.4 K/uL (0.7-4.9); Absolute Monocytes 0.9 K/uL (0.1-1.3); Absolute Neutrophil 13.3 K/uL (1.8-8.0); Basophils % 0.3 % (0-1.3); Eosinophils % 0.3 % (0-4.4); Hematocrit 33.5 % (39.6-49.0); MPV 7.1 fL (7.6-11.3); Monocytes % 5.6 % (3.3-12.3)
--- NOTE | 2018-10-30 17:40 | P.PN ---
Subjective Date of Service: 10/30/18 Chief Complaint: Dehydration; generalized weakness Subjective: Improving Patient seen and examined at bedside. No family at bedside. Chart reviewed and case discussed with nursing staff. Patient symptoms improved Review of Systems 10-point ROS is otherwise unremarkable Physical Examination - Vital Signs Temperature: 99.0 F Blood Pressure: 108/62 Pulse: 76 Respirations: 18 Pulse Ox (%): 96 - Physical Exam General: Alert, In no apparent distress HEENT: Atraumatic, PERRLA, EOMI Neck: Supple, JVD not distended Respiratory: Clear to auscultation bilaterally, Normal air movement Cardiovascular: Regular rate/rhythm, Normal S1 S2 Gastrointestinal: Normal bowel sounds, No tenderness Musculoskeletal: No tenderness Integumentary: No rashes Neurological: Normal speech, Normal tone, Normal affect Lymphatics: No axilla or inguinal lymphadenopathy - Studies Microbiology Data (last 24 hrs): 10/28/18 20:10 Clean Catch Urine [place] Count - Final >100,000 CFU/ML. 10/28/18 20:10 Clean Catch Urine - Final MIXED LOGAN. Assessment And Plan - Plan - Problems (Diagnosis) (1) Dehydration (2) Fatigue (3) Generalized weakness (4) Hypoalbuminemia 1. Continue with gentle hydration 2. Dietary consultation, 3. Physical therapy evaluation 4. Adjust home medication list 5. Monitor labs closely 6. Strict blood pressure and blood sugar control 7. GI and DVT prophylaxis Disposition: Likely discharge in the next 24 hr
[2018-10-30] MEDS: TRAZODONE 50 MG TABLET PO SCH (20:42)
[2018-10-30] MEDS: PRAZOSIN HCL 1 MG CAP PO SCH (20:45)
[2018-10-31] MEDS: NA CHLORIDE 0.9% 1,000 ML IV SCH ×3 (00:36→21:10)
[2018-10-31 05:06] VITALS: BMI 30.3
[2018-10-31] MEDS: PANTOPRAZOLE 40MG TABLET PO SCH (05:42)
[2018-10-31] MEDS: ACETAMINOPHEN 500 MG TAB PO PRN (05:42)
[2018-10-31 05:46] LABS: Absolute Lymphocytes (CBC) 1.6 K/uL (0.7-4.9); Absolute Neutrophil 12.7 K/uL (1.8-8.0); Basophils % 0.1 % (0-1.3); Eosinophils % 0.4 % (0-4.4); Hematocrit 31.5 % (39.6-49.0); Lymphocytes % 10.5 % (15.3-44.8); MPV 7.3 fL (7.6-11.3); Monocytes % 6.7 % (3.3-12.3); RBC Red Blood Cell Count 3.68 M/uL (4.33-5.43)
[2018-10-31 06:03] LABS: BUN Blood Urea Nitrogen 11 mg/dL (7-18); Bicarbonate 30 mmol/L (21-32); Glucose Level 117 mg/dL (74-106); Potassium 3.5 mmol/L (3.5-5.1); Sodium Level 141 mmol/L (136-145)
[2018-10-31] MEDS: ASPIRIN 81 MG CHEWABLE TABLET PO SCH (08:12)
[2018-10-31] MEDS: CITALOPRAM 10 MG TABLET PO SCH (08:12)
[2018-10-31] MEDS: EZETIMIBE 10 MG TAB PO SCH (08:12)
[2018-10-31] MEDS: ALLOPURINOL 100 MG TAB PO SCH (08:12)
[2018-10-31] MEDS: MECLIZINE HCL 12.5 MG TAB PO SCH ×3 (08:12→21:08)
[2018-10-31] MEDS: VITAMIN D 400 UNIT TAB PO SCH (08:13)
[2018-10-31] MEDS: DICLOFENAC SODIUM TP SCH ×2 (08:13→21:00)
[2018-10-31] MEDS: BUSPIRONE HCL 5 MG TABLET PO SCH ×3 (08:16→21:09)
[2018-10-31] MEDS ORDERED: POTASSIUM CL SA 10 MEQ TAB PO ONE (09:00)
--- NOTE | 2018-10-31 13:15 | RAD REPORT ---
EXAM DESCRIPTION: Ángel Single View10/31/2018 1:05 pm CLINICAL HISTORY: cough COMPARISON: October 2018 FINDINGS: The right hemidiaphragm is elevated. The lungs appear clear of acute infiltrate. The heart is normal size
[2018-10-31] MEDS: HYDROCODONE/APAP 5/325 MG TAB PO PRN (14:01)
--- NOTE | 2018-10-31 16:36 | P.PN ---
Subjective Date of Service: 10/31/18 Chief Complaint: Dehydration; generalized weakness Patient seen and examined at bedside. No family at bedside. Chart reviewed and case discussed with nursing staff. Patient with low grade temperature of 100.2, elevated WBC. Denies any comlpaints of cp, sob, GI complaints, complaints Review of Systems 10-point ROS is otherwise unremarkable Physical Examination - Vital Signs Temperature: 98.0 F Blood Pressure: 119/58 Pulse: 75 Respirations: 24 Pulse Ox (%): 93 - Physical Exam General: Alert, In no apparent distress, Oriented x3, Other (weak, ) HEENT: Atraumatic, PERRLA, EOMI Neck: Supple, JVD not distended Respiratory: Clear to auscultation bilaterally, Normal air movement Cardiovascular: Regular rate/rhythm, Normal S1 S2 Gastrointestinal: Normal bowel sounds, No tenderness Musculoskeletal: No tenderness Integumentary: No rashes Neurological: Normal speech, Normal tone, Normal affect Assessment And Plan - Plan (1) Dehydration (2) Fatigue (3) Generalized weakness (4) Hypoalbuminemia (5) Low grade temperature (6) Hx of PTSD 1. Continue with gentle hydration. Also encourage PO hydration 2. Dietary consultation 3. Physical therapy evaluation, pending. 4. Elevated WBC, low grade temperature, intermittently tachypneic. No source of infection identified at this time, cultures negative so far. Chest x-ray ordered, along with pro-rocco and lactic acid. 1 time straight cath for a urine sample. Will continue to monitor. 5. [facility]. Disposition: Pending symptomatic improvement and workup.
[2018-10-31] MEDS: PRAZOSIN HCL 1 MG CAP PO SCH (21:07)
[2018-10-31] MEDS: TRAZODONE 50 MG TABLET PO SCH (21:09)
[2018-11-01 06:03] LABS: BUN Blood Urea Nitrogen 12 mg/dL (7-18); Bicarbonate 28 mmol/L (21-32); Glucose Level 109 mg/dL (74-106); Potassium 3.6 mmol/L (3.5-5.1); Sodium Level 142 mmol/L (136-145)
[2018-11-01] MEDS: PANTOPRAZOLE 40MG TABLET PO SCH (06:10)
[2018-11-01] MEDS: NA CHLORIDE 0.9% 1,000 ML IV SCH ×2 (06:11→22:04)
[2018-11-01] MEDS: CITALOPRAM 10 MG TABLET PO SCH (08:39)
[2018-11-01] MEDS: BUSPIRONE HCL 5 MG TABLET PO SCH ×3 (08:39→22:06)
[2018-11-01] MEDS: ASPIRIN 81 MG CHEWABLE TABLET PO SCH (08:39)
[2018-11-01] MEDS: ALLOPURINOL 100 MG TAB PO SCH (08:39)
[2018-11-01] MEDS: EZETIMIBE 10 MG TAB PO SCH (08:39)
[2018-11-01] MEDS: VITAMIN D 400 UNIT TAB PO SCH (08:39)
[2018-11-01] MEDS: DICLOFENAC SODIUM TP SCH ×2 (08:40→21:00)
[2018-11-01] MEDS: MECLIZINE HCL 12.5 MG TAB PO SCH ×3 (08:40→22:07)
[2018-11-01] MEDS ORDERED: POTASSIUM 25 MEQ EFFERV TAB PO ONE (09:00)
[2018-11-01] MEDS ORDERED: ALBUTEROL 2.5 MG/3 ML NEB SOL NEB PRN (10:37)
[2018-11-01] MEDS ORDERED: IPRATROPIUM BROM 0.5MG/2.5ML NEB PRN (10:37)
[2018-11-01 11:31] LABS: Absolute Lymphocytes (CBC) 1.3 K/uL (0.7-4.9); Absolute Monocytes 1.3 K/uL (0.1-1.3); Absolute Neutrophil 12.8 K/uL (1.8-8.0); Basophils % 0.2 % (0-1.3); Eosinophils % 0.6 % (0-4.4); Hematocrit 31.3 % (39.6-49.0); Lymphocytes % 8.4 % (15.3-44.8); MPV 7.2 fL (7.6-11.3); Monocytes % 8.5 % (3.3-12.3); RBC Red Blood Cell Count 3.64 M/uL (4.33-5.43)
--- NOTE | 2018-11-01 13:46 | RAD REPORT ---
EXAM DESCRIPTION: CT - Abdomen Pelvis W Contrast - 11/01/2018 1:09 pm CLINICAL HISTORY: Abdominal pain COMPARISON: None. TECHNIQUE: Biphasic, helical CT imaging of the abdomen and pelvis was performed following 100 ml non -ionic IV contrast. Oral contrast was given. All CT scans are performed using dose optimization technique as appropriate and may include automated exposure control or mA/KV adjustment according to patient size. FINDINGS: Minimal right pleural effusion with partial atelectasis. No pericardial thickening or effu saul. Liver and spleen show no suspicious findings. No pancreatitis or acute primary pancreatic process see n. The slight fullness to the head of the pancreas detailed in 2016 is similar or less prominent. Gal lbladder is abnormal in appearance. There is wall thickening present. Gallstones can be occult. Fluid is present in the gallbladder fossa interposed between the gallbladder and the liver capsule. No abn ormal biliary tree dilatation. Patient has extensive postsurgical change of the upper abdomen. Gastro jejunostomy is present. Antrum of the stomach has been resected. The afferent limb or remnant proximal duodenum minimal wall thicke parker with stranding in the adjacent fatty tissues. There is a 5 x 3 centimeter fluid collection along the posterior wall of this limb of duodenum. This is possibly in communication with the fluid collec tion between the gallbladder the liver capsule. No free air. No extravasation of oral contrast or bowel content. Symmetric renal function is seen with no hydronephrosis or suspicious renal mass. No pyelonephritis o r acute parenchymal process. Prostate gland is prominent. Lobulated contour projects into the trigone of the bladder base. Primary bladder mass not suspected. Urinary bladder is mostly contracted No adr enal abnormalities. No acute colon finding. No dilated small bowel loops or small bowel abnormality outside of the duoden al limb. No free air or pneumatosis. No mass or bulky lymphadenopathy. The patient has a very large fat only left inguinal hernia. No congestion or edema. No bowel involvement. No suspicious bony findings. Approximately 10 x 6 centimeter fatty mass is present between the left gluteus musculature in the le ft iliac crest. No mural nodule or septation. IMPRESSION: A 5 x 3 centimeter walled-off fluid collection is present along the posterior wall of th e afferent limb or remnant duodenum in the right upper quadrant. There is an additional 6 x 2 cm flui d collection interposed between the gallbladder and liver. The 2 fluid collections may be a single complex collection. Abscess is certainly possible. A fluid c ollection related to a duodenal ulcer is possible. Gallbladder wall thickening is present. This could be primary cholecystitis or secondary response to the adjacent duodenum and fluid collection findings. No biliary tree dilatation. Minimal right pleural effusion with atelectasis. Prostatic hypertrophy projecting into the urinary bladder base. Patient has a 10 centimeter fatty mass positioned between the left gluteal musculature and the left i liac crest. No stranding or septation to suspect a more aggressive process.
--- NOTE | 2018-11-01 14:32 | P.PN ---
Subjective Date of Service: 11/01/18 Chief Complaint: Dehydration; generalized weakness Subjective: Worsening Patient seen and examined at bedside. No family at bedside. Chart reviewed and case discussed with nursing staff. Patient with low grade temperature of 100.2, elevated WBC. Denies any comlpaints of cp, sob, GI complaints, complaints the abdomen seems to be distended on exam, and he is slightly tender to palpation He refuses to skilled therapy, states he feels too weak. No appetite Review of Systems 10-point ROS is otherwise unremarkable Physical Examination - Vital Signs Temperature: 97.4 F Blood Pressure: 146/68 Pulse: 87 Respirations: 24 Pulse Ox (%): 95 - Physical Exam General: Alert, Oriented x3, Mild distress, Other (Ill-appearing) HEENT: Atraumatic, PERRLA, EOMI Neck: Supple, JVD not distended Respiratory: Normal air movement, Expiratory wheezes Cardiovascular: Regular rate/rhythm, Normal S1 S2 Gastrointestinal: Normal bowel sounds, Distended, Tenderness Neurological: Normal speech, Normal tone, Normal affect Assessment And Plan - Current Problems (Diagnosis) (1) Abdominal abscess Current Visit: Yes Status: Acute (2) Duodenal ulcer Current Visit: Yes Status: Acute (3) Dehydration Current Visit: Yes Status: Acute (4) Fatigue Current Visit: Yes Status: Acute (5) Generalized weakness Current Visit: Yes Status: Acute (6) Hypoalbuminemia Current Visit: Yes Status: Acute - Plan This is an 83-year-old male with: Abdominal abscess versus duodenal ulcer Elevated WBC count, low-grade temperatures, intermittent tachypneic/tachycardia. This seems to be the source of the infection. We will go ahead and start patient on IV ciprofloxacin and Flagyl. General surgery consulted Per grandson, patient seems to have a vague history of abdominal stent/biliary stent? a few years ago. Serial abdominal exams. If pain seems to get worse, will need abdominal x-ray to evaluate for duodenal perforation. Dehydration Fatigue Generalized weakness Physical therapy. History of PTSD He will need outpatient follow up at the [facility] for PTSD. DVT prophylaxis: Lovenox GI prophylaxis: Protonix Diet: NPO Disposition: Pending surgical consultation and symptomatic improvement.
[2018-11-01] MEDS: CIPROFLOXACIN 400mg IV 400 MG/200 ML BAG IV SCH ×2 (15:33→22:06)
[2018-11-01] MEDS: METRONIDAZOLE 500mg IVPB 500 MG/100 ML BAG IV SCH (16:47)
--- NOTE | 2018-11-01 17:10 | P.CNS ---
Date of Consult: 11/01/18 PC: I was asked to see this 83-year-old male in regards to an intra-abdominal abscess. HPC: Patient apparently presented initially in feeling weak and dizzy a with nausea especially after he ate. The came to the emergency room for evaluation treatment. At the current time is not complaining of any pain or discomfort. Says he is just feels a little tired. PMH: Dementia, hypertension, vertigo, depression PSHx: Recent abdominal surgery, brain surgery. His abdominal surgery apparently had some intra-abdominal stents placed. SOC: No known allergies, his medications were reviewed SYS REVIEW: States he is otherwise in good health O/E awake alert comfortable at the moment conversive in no apparent distress HEENT: Within normal limits Chest: Chest movement equal bilaterally ABD: Has a midline incision, abdomen is distended but he has a large abdomen no guarding rebound a right upper quadrant tenderness LOCO: Intact DATA: Elevated white cell count. An abdominal CT today shows a fluid collection up around what appears to be the afferent limb of AE gastric Suresh-en- Y bypass. His gallbladder appears thickened on CT scan but this is right in the middle of the inflammatory process. There does not appear to be a communication between the GI tract and this area at this time. It does not appear to be acute. IMPRESSION: This patient has a intra-abdominal abscess. This may be consistent with a perforated ulcer that has sealed off. He is 83 years of age, and a poor surgical candidate, but does not appear to require emergent intervention at this time. PLAN: I would recommend he be started on some IV antibiotics, analgesics, and supportive therapy for the moment. We will see how it progresses over the next 24-48 hr.. I will follow with you.
[2018-11-01] MEDS: TRAZODONE 50 MG TABLET PO SCH (22:06)
[2018-11-01] MEDS: PRAZOSIN HCL 1 MG CAP PO SCH (22:06)
[2018-11-02] MEDS: METRONIDAZOLE 500mg IVPB 500 MG/100 ML BAG IV SCH ×4 (00:51→21:39)
[2018-11-02] MEDS: GUAIFENESIN/CODEINE 5ML UCUP PO PRN (01:37)
[2018-11-02] MEDS: NA CHLORIDE 0.9% 1,000 ML IV SCH ×2 (05:00→15:00)
[2018-11-02 06:04] LABS: BUN Blood Urea Nitrogen 11 mg/dL (7-18); Bicarbonate 29 mmol/L (21-32); Glucose Level 99 mg/dL (74-106); Potassium 3.8 mmol/L (3.5-5.1); Sodium Level 144 mmol/L (136-145)
[2018-11-02] MEDS: PANTOPRAZOLE 40MG TABLET PO SCH (06:39)
[2018-11-02] MEDS: DICLOFENAC SODIUM TP SCH ×2 (09:00→21:00)
[2018-11-02] MEDS ORDERED: POTASSIUM 25 MEQ EFFERV TAB PO ONE (09:00)
[2018-11-02] MEDS: BUSPIRONE HCL 5 MG TABLET PO SCH ×3 (11:00→21:40)
[2018-11-02] MEDS: EZETIMIBE 10 MG TAB PO SCH (11:01)
[2018-11-02] MEDS: CITALOPRAM 10 MG TABLET PO SCH (11:01)
[2018-11-02] MEDS: MECLIZINE HCL 12.5 MG TAB PO SCH ×3 (11:02→21:41)
[2018-11-02] MEDS: ALLOPURINOL 100 MG TAB PO SCH (11:03)
[2018-11-02] MEDS: VITAMIN D 400 UNIT TAB PO SCH (11:03)
[2018-11-02] MEDS: CIPROFLOXACIN 400mg IV 400 MG/200 ML BAG IV SCH ×2 (11:05→21:40)
[2018-11-02] MEDS: ASPIRIN 81 MG CHEWABLE TABLET PO SCH (11:05)
[2018-11-02] MEDS: HYDROCODONE/APAP 5/325 MG TAB PO PRN (14:13)
[2018-11-02] MEDS: PRAZOSIN HCL 1 MG CAP PO SCH (21:00)
[2018-11-02] MEDS: TRAZODONE 50 MG TABLET PO SCH (21:41)
--- NOTE | 2018-11-02 22:35 | P.PN ---
Subjective Date of Service: 11/02/18 Chief Complaint: Dehydration; generalized weakness Patient seen and examined at bedside. No family at bedside. Chart reviewed and case discussed with nursing staff. Patient with low grade temperature of 100.2, elevated WBC. Denies any comlpaints of cp, sob, GI complaints, complaints the abdomen seems to be distended on exam, and he is slightly tender to palpation He refuses to skilled therapy, states he feels too weak. No appetite Review of Systems 10-point ROS is otherwise unremarkable Physical Examination - Vital Signs Temperature: 98.0 F Blood Pressure: 149/64 Pulse: 67 Respirations: 20 Pulse Ox (%): 94 - Physical Exam General: Alert, In no apparent distress, Oriented x3 HEENT: Atraumatic, PERRLA, EOMI Neck: Supple, JVD not distended Respiratory: Clear to auscultation bilaterally, Normal air movement Cardiovascular: Regular rate/rhythm, Normal S1 S2 - Studies Microbiology Data (last 24 hrs): 10/31/18 12:55 Wound - Left Nose Gram Stain - Final 10/31/18 12:55 Wound - Left Nose Culture & Sensitivity - Final Meth Resistant Staph Aureus 10/31/18 14:25 Catheterized Urine [place] Count - Final <10,000 CFU/ML. 10/31/18 14:25 Catheterized Urine - Final Assessment And Plan - Current Problems (Diagnosis) (1) Abdominal abscess Current Visit: Yes Status: Acute (2) Duodenal ulcer Current Visit: Yes Status: Acute (3) Dehydration Current Visit: Yes Status: Acute (4) Fatigue Current Visit: Yes Status: Acute (5) Generalized weakness Current Visit: Yes Status: Acute (6) Hypoalbuminemia Current Visit: Yes Status: Acute - Plan This is an 83-year-old male with: Abdominal abscess versus duodenal ulcer Elevated WBC count, low-grade temperatures, intermittent tachypneic/tachycardia. This seems to be the source of the infection. Continue IV ciprofloxacin and Flagyl. General surgery consulted, recommendations appreciated Per grandson, patient seems to have a vague history of abdominal stent/biliary stent? a few years ago. Serial abdominal exams. If pain seems to get worse, will need abdominal x-ray to evaluate for duodenal perforation. Dehydration Fatigue Generalized weakness Physical therapy. History of PTSD He will need outpatient follow up at the [place] for PTSD. DVT prophylaxis: Lovenox GI prophylaxis: Protonix Diet: NPO Disposition: Pending symptomatic improvement.
[2018-11-03] MEDS: METRONIDAZOLE 500mg IVPB 500 MG/100 ML BAG IV SCH ×4 (00:52→17:50)
[2018-11-03] MEDS: NA CHLORIDE 0.9% 1,000 ML IV SCH ×3 (01:00→20:39)
[2018-11-03] MEDS: PANTOPRAZOLE 40MG TABLET PO SCH (06:14)
[2018-11-03 08:30] LABS: BUN Blood Urea Nitrogen 11 mg/dL (7-18); Bicarbonate 29 mmol/L (21-32); Glucose Level 97 mg/dL (74-106); Sodium Level 144 mmol/L (136-145)
[2018-11-03] MEDS: DICLOFENAC SODIUM TP SCH ×2 (09:00→20:35)
[2018-11-03] MEDS: BUSPIRONE HCL 5 MG TABLET PO SCH ×3 (10:32→20:32)
[2018-11-03] MEDS: EZETIMIBE 10 MG TAB PO SCH (10:32)
[2018-11-03] MEDS: MECLIZINE HCL 12.5 MG TAB PO SCH ×3 (10:32→20:33)
[2018-11-03] MEDS: ASPIRIN 81 MG CHEWABLE TABLET PO SCH (10:34)
[2018-11-03] MEDS: CITALOPRAM 10 MG TABLET PO SCH (10:34)
[2018-11-03] MEDS: ALLOPURINOL 100 MG TAB PO SCH (10:35)
[2018-11-03] MEDS: VITAMIN D 400 UNIT TAB PO SCH (10:46)
[2018-11-03] MEDS: CIPROFLOXACIN 400mg IV 400 MG/200 ML BAG IV SCH ×2 (10:47→20:32)
--- NOTE | 2018-11-03 13:35 | P.PN ---
Subjective Date of Service: 11/03/18 Chief Complaint: Dehydration; generalized weakness Subjective: Improving Patient seen and examined at bedside. No family at bedside. Chart reviewed and case discussed with nursing staff. Patient states he is feeling better this morning. He is much more awake and feeling stronger. Denies any complaints of cp, sob, GI complaints, complaints He refuses to skilled therapy, states he feels too weak. He is still is refusing to sit up in a chair even. No appetite Review of Systems 10-point ROS is otherwise unremarkable Physical Examination - Vital Signs Temperature: 98.0 F Blood Pressure: 149/64 Pulse: 67 Respirations: 20 Pulse Ox (%): 94 - Physical Exam General: Alert, In no apparent distress, Other (Ill appearing) Neck: Supple, JVD not distended Respiratory: Clear to auscultation bilaterally, Normal air movement Cardiovascular: Regular rate/rhythm, Normal S1 S2 Gastrointestinal: Normal bowel sounds, Soft and benign, No tenderness, No masses , No rebound, No guarding - Studies Microbiology Data (last 24 hrs): 10/31/18 11:50 Other - Body Fluid Culture & Sensitivity - Final Staph Aureus Pantoea Agglomerans 10/28/18 20:24 Blood - Blood Aerobic Blood Culture - Final No growth in 5 days. 10/28/18 20:24 Blood - Blood Anaerobic Blood Culture - Final No growth in 5 days. 10/28/18 20:39 Blood - Blood Aerobic Blood Culture - Final No growth in 5 days. 10/28/18 20:39 Blood - Blood Anaerobic Blood Culture - Final No growth in 5 days. 10/31/18 12:55 Wound - Left Nose Gram Stain - Final 10/31/18 12:55 Wound - Left Nose Culture & Sensitivity - Final Meth Resistant Staph Aureus 10/31/18 14:25 Catheterized Urine [place] Count - Final <10,000 CFU/ML. 10/31/18 14:25 Catheterized Urine - Final Assessment And Plan - Current Problems (Diagnosis) (1) Abdominal abscess Current Visit: Yes Status: Acute (2) Duodenal ulcer Current Visit: Yes Status: Acute (3) Dehydration Current Visit: Yes Status: Acute (4) Fatigue Current Visit: Yes Status: Acute (5) Generalized weakness Current Visit: Yes Status: Acute (6) Hypoalbuminemia Current Visit: Yes Status: Acute - Plan This is an 83-year-old male with: Abdominal abscess versus duodenal ulcer Improving, afebrile overnight This seems to be the source of the infection. Continue IV ciprofloxacin and Flagyl. General surgery consulted, recommendations appreciated Per grandson, patient seems to have a vague history of abdominal stent/biliary stent? a few years ago. Serial abdominal exams. If pain seems to get worse, will need abdominal x-ray to evaluate for duodenal perforation. Dehydration Fatigue Generalized weakness Physical therapy. Patient refusing this time. States he will try later History of PTSD He will need outpatient follow up at the [place] for PTSD. DVT prophylaxis: Lovenox GI prophylaxis: Protonix Diet: NPO Disposition: Pending symptomatic improvement.
[2018-11-03 14:15] LABS: Absolute Lymphocytes (CBC) 1.5 K/uL (0.7-4.9); Absolute Monocytes 0.7 K/uL (0.1-1.3); Absolute Neutrophil 6.3 K/uL (1.8-8.0); Basophils % 0.5 % (0-1.3); Eosinophils % 1.4 % (0-4.4); Hematocrit 33.2 % (39.6-49.0); Lymphocytes % 17.1 % (15.3-44.8); MPV 7.1 fL (7.6-11.3); Monocytes % 7.8 % (3.3-12.3); RBC Red Blood Cell Count 3.84 M/uL (4.33-5.43)
--- NOTE | 2018-11-03 15:34 | RAD REPORT ---
EXAM DESCRIPTION: RAD - Abdomen W Erect - 11/03/2018 2:31 pm CLINICAL HISTORY: Abdominal pain, possible free air COMPARISON: CT study November 01 TECHNIQUE: Supine and upright views of the abdomen were obtained. FINDINGS: No large or small bowel obstruction pattern seen. Oral CT contrast has reached the distal rectum. No free air under the diaphragm. No evidence for free air or pneumatosis. No extravasation of oral CT contrast. Bowel gas pattern is nonspecific. Numerous surgical clips are seen in the upper midline abdomen. No suspicious calcification. No acute bone finding. IMPRESSION: No free air or other emergent finding.
[2018-11-03] MEDS: TRAZODONE 50 MG TABLET PO SCH (20:32)
[2018-11-03] MEDS: PRAZOSIN HCL 1 MG CAP PO SCH (20:34)
[2018-11-03] MEDS: HYDROCODONE/APAP 5/325 MG TAB PO PRN (20:37)
[2018-11-04] MEDS: METRONIDAZOLE 500mg IVPB 500 MG/100 ML BAG IV SCH ×4 (00:05→18:01)
[2018-11-04] MEDS: GUAIFENESIN/CODEINE 5ML UCUP PO PRN (00:18)
[2018-11-04] MEDS: NA CHLORIDE 0.9% 1,000 ML IV SCH ×2 (00:18→14:58)
[2018-11-04] MEDS: PANTOPRAZOLE 40MG TABLET PO SCH (05:44)
[2018-11-04 06:13] LABS: Absolute Lymphocytes (CBC) 1.9 K/uL (0.7-4.9); Absolute Monocytes 0.6 K/uL (0.1-1.3); Absolute Neutrophil 4.8 K/uL (1.8-8.0); Basophils % 1.1 % (0-1.3); Eosinophils % 1.9 % (0-4.4); Lymphocytes % 25.5 % (15.3-44.8); MPV 7.4 fL (7.6-11.3); Monocytes % 8.4 % (3.3-12.3); RBC Red Blood Cell Count 3.84 M/uL (4.33-5.43)
[2018-11-04 06:39] LABS: BUN Blood Urea Nitrogen 10 mg/dL (7-18); Bicarbonate 27 mmol/L (21-32); Glucose Level 90 mg/dL (74-106); Potassium 3.5 mmol/L (3.5-5.1); Sodium Level 144 mmol/L (136-145)
[2018-11-04] MEDS: DICLOFENAC SODIUM TP SCH ×2 (09:00→21:00)
[2018-11-04] MEDS ORDERED: POTASSIUM 25 MEQ EFFERV TAB PO ONE (09:00)
[2018-11-04] MEDS: ALLOPURINOL 100 MG TAB PO SCH (09:07)
[2018-11-04] MEDS: BUSPIRONE HCL 5 MG TABLET PO SCH ×3 (09:07→22:55)
[2018-11-04] MEDS: CITALOPRAM 10 MG TABLET PO SCH (09:07)
[2018-11-04] MEDS: MECLIZINE HCL 12.5 MG TAB PO SCH ×3 (09:08→22:55)
[2018-11-04] MEDS: EZETIMIBE 10 MG TAB PO SCH (09:08)
[2018-11-04] MEDS: CIPROFLOXACIN 400mg IV 400 MG/200 ML BAG IV SCH ×3 (09:08→22:55)
[2018-11-04] MEDS: VITAMIN D 400 UNIT TAB PO SCH (09:08)
[2018-11-04] MEDS: ASPIRIN 81 MG CHEWABLE TABLET PO SCH (09:08)
--- NOTE | 2018-11-04 12:39 | P.PN ---
Subjective Date of Service: 11/04/18 Chief Complaint: Dehydration; generalized weakness Subjective: Improving Patient seen and examined at bedside. No family at bedside. Chart reviewed and case discussed with nursing staff. Patient states he is feeling better this morning. Denies any complaints of cp, sob, GI complaints, complaints He refuses to skilled therapy, states he feels too weak. He is still is refusing to sit up in a chair even. No appetite but did have little to eat this morning Review of Systems 10-point ROS is otherwise unremarkable Physical Examination - Vital Signs Temperature: 98.3 F Blood Pressure: 145/69 Pulse: 66 Respirations: 16 Pulse Ox (%): 93 - Physical Exam General: Alert, In no apparent distress, Other (Sleepy, lying in a dark room with a towel over his head. Refused to get out of bed) HEENT: Atraumatic, PERRLA, EOMI Neck: Supple, JVD not distended Respiratory: Clear to auscultation bilaterally, Normal air movement Cardiovascular: Regular rate/rhythm, Normal S1 S2 Gastrointestinal: Normal bowel sounds, No tenderness Musculoskeletal: No tenderness Integumentary: No rashes Neurological: Normal speech, Normal tone, Normal affect - Studies Microbiology Data (last 24 hrs): 10/31/18 11:50 Other - Body Fluid Culture & Sensitivity - Final Staph Aureus Pantoea Agglomerans Assessment And Plan - Current Problems (Diagnosis) (1) Abdominal abscess Current Visit: Yes Status: Acute (2) Duodenal ulcer Current Visit: Yes Status: Acute (3) Dehydration Current Visit: Yes Status: Acute (4) Fatigue Current Visit: Yes Status: Acute (5) Generalized weakness Current Visit: Yes Status: Acute (6) Hypoalbuminemia Current Visit: Yes Status: Acute - Plan This is an 83-year-old male with: Abdominal abscess versus duodenal ulcer Improving, afebrile overnight This seems to be the source of the infection. Continue IV ciprofloxacin and Flagyl. General surgery consulted, recommendations appreciated Per grandson, patient seems to have a vague history of abdominal stent/biliary stent? a few years ago. Serial abdominal exams. Abdominal x-ray with no free air or obstruction. Dehydration Fatigue Generalized weakness Physical therapy. Patient refusing this time. States he will try later History of PTSD He will need outpatient follow up at the [facility] for [facility]. DVT prophylaxis: Lovenox GI prophylaxis: Protonix Diet: NPO Disposition: Pending symptomatic improvement. Encouraged patient to get out of bed and ambulating, up in chair.
--- NOTE | 2018-11-04 13:08 | P.PN ---
Date of Service: 11/04/18 S: Patient looks well today. Has no specific complaints. Wants to know what is going to be able to go home. He has stated that no matter what we find he will not be having surgery at any point. O: Vital signs are stable, abdomen is soft, minimal tenderness. White cell count back to normal A: Surgically stable P: Clinically patient seems to be much improved. His white cell count has come back down to normal. His minimal abdominal discomfort. Recommend starting patient back on a diet. He is anxious to be discharged.
[2018-11-04] MEDS: TRAZODONE 50 MG TABLET PO SCH (22:55)
[2018-11-04] MEDS: PRAZOSIN HCL 1 MG CAP PO SCH (22:56)
[2018-11-05] MEDS: NA CHLORIDE 0.9% 1,000 ML IV SCH ×4 (03:00→23:00)
[2018-11-05] MEDS: PANTOPRAZOLE 40MG TABLET PO SCH (05:31)
[2018-11-05] MEDS: METRONIDAZOLE 500mg IVPB 500 MG/100 ML BAG IV SCH ×4 (06:12→17:09)
[2018-11-05 06:41] LABS: Absolute Monocytes 0.6 K/uL (0.1-1.3); Basophils % 0.6 % (0-1.3); Eosinophils % 1.4 % (0-4.4); Hematocrit 31.8 % (39.6-49.0); Lymphocytes % 25.9 % (15.3-44.8); Monocytes % 7.5 % (3.3-12.3)
[2018-11-05 06:52] LABS: BUN Blood Urea Nitrogen 11 mg/dL (7-18); Bicarbonate 28 mmol/L (21-32); Glucose Level 94 mg/dL (74-106); Potassium 3.6 mmol/L (3.5-5.1); Sodium Level 143 mmol/L (136-145)
[2018-11-05] MEDS ORDERED: POTASSIUM CL SA 10 MEQ TAB PO ONE (07:24)
[2018-11-05] MEDS: ASPIRIN 81 MG CHEWABLE TABLET PO SCH (08:55)
[2018-11-05] MEDS: ALLOPURINOL 100 MG TAB PO SCH (08:55)
[2018-11-05] MEDS: EZETIMIBE 10 MG TAB PO SCH (08:55)
[2018-11-05] MEDS: MECLIZINE HCL 12.5 MG TAB PO SCH ×3 (08:55→22:27)
[2018-11-05] MEDS: VITAMIN D 400 UNIT TAB PO SCH (08:56)
[2018-11-05] MEDS: CITALOPRAM 10 MG TABLET PO SCH (08:56)
[2018-11-05] MEDS: BUSPIRONE HCL 5 MG TABLET PO SCH ×3 (08:56→22:27)
[2018-11-05] MEDS: CIPROFLOXACIN 400mg IV 400 MG/200 ML BAG IV SCH ×2 (08:56→22:27)
[2018-11-05] MEDS: DICLOFENAC SODIUM TP SCH ×2 (08:59→21:00)
[2018-11-05] MEDS: ACETAMINOPHEN 500 MG TAB PO PRN (13:52)
[2018-11-05] MEDS ORDERED: IPRATROPIUM BROM 0.5MG/2.5ML NEB PRN (16:00)
[2018-11-05] MEDS ORDERED: ALBUTEROL 2.5 MG/3 ML NEB SOL NEB PRN (16:00)
--- NOTE | 2018-11-05 17:10 | PN ---
Date of Progress Note: 11/05/2018 Subjective: The patient is seen and examined. Chart reviewed and case discussed with RN. The patient is doing well overall. No acute events overnight. The patient still has a very decreased appetite. Code Status: Full. Medications: List reviewed. Physical Examination: Vital Signs: Temperature 97.3, heart rate 75, blood pressure 122/64, respirations 20, O2 93% on room air. General: Awake, alert, oriented x3. Elderly male, in some mild distress. Obese, BMI 30. CV: S1, S2. Peripheral pulses present. Regular rate and rhythm. Respiratory: Moving air well bilaterally. No wheezing. Gastrointestinal: Abdomen is soft. Mild tenderness to palpation. No guarding or rigidity. Bowel sounds positive. Extremities: No clubbing, cyanosis, or edema. Neuro: Cranial nerves 2 through 12 intact grossly. No focal neurological deficit. Speech is normal. Laboratory Data: Sodium 143, potassium 3.6, chloride 108, CO2 of 28, BUN 11, creatinine 0.79, glucose 94, calcium 8.1. WBC 7.8, H and H 10.6 and 31.8, platelets 451, neutrophils 64%. Wound from the left nose growing MRSA and other cultures, body fluid growing Staph aureus and Pantoea agglomerans. Assessment And Plan: An 83-year-old male with; 1. Abdominal abscess versus duodenal ulcer, improving. The patient has remained afebrile. White count has normalized. Currently on antibiotics with Cipro and Flagyl. Dr. Chamorro does not recommend any surgical intervention at this time. There is some vague history of possible abdominal stent or biliary stent few years ago. Abdominal x-ray does not show any free air or obstruction. 2. Acute dehydration. Continue IV fluids. Encourage p.o. intake. 3. Generalized weakness. Continue PT, has been refusing. 4. History of post-traumatic stress disorder. 5. Obesity, BMI 30. 6. Gout. 7. Depression and anxiety, stable. 8. Gastroesophageal reflux disease. 9. Essential hypertension. 10. Severe protein calorie malnutrition Plan: Discharge planning. Refer to half-way facility. We will discuss with family. /YI Voice ID: [id number] Report ID: [id number] EMY
[2018-11-05] MEDS: TRAZODONE 50 MG TABLET PO SCH (22:27)
[2018-11-05] MEDS: PRAZOSIN HCL 1 MG CAP PO SCH (22:28)
[2018-11-06] MEDS: METRONIDAZOLE 500mg IVPB 500 MG/100 ML BAG IV SCH ×4 (00:40→17:03)
[2018-11-06] MEDS: NA CHLORIDE 0.9% 1,000 ML IV SCH ×3 (04:52→21:18)
[2018-11-06 06:31] LABS: Absolute Lymphocytes (CBC) 1.6 K/uL (0.7-4.9); Absolute Monocytes 0.6 K/uL (0.1-1.3); Absolute Neutrophil 5.4 K/uL (1.8-8.0); Basophils % 0.7 % (0-1.3); Eosinophils % 1.7 % (0-4.4); Hematocrit 32.3 % (39.6-49.0); MPV 7.1 fL (7.6-11.3); Monocytes % 7.4 % (3.3-12.3); RBC Red Blood Cell Count 3.71 M/uL (4.33-5.43)
[2018-11-06 06:36] LABS: Potassium 3.6 mmol/L (3.5-5.1)
[2018-11-06] MEDS: PANTOPRAZOLE 40MG TABLET PO SCH (07:41)
[2018-11-06] MEDS: DICLOFENAC SODIUM TP SCH ×2 (09:00→21:00)
[2018-11-06] MEDS ORDERED: POTASSIUM CL SA 10 MEQ TAB PO ONE (09:00)
[2018-11-06] MEDS: BUSPIRONE HCL 5 MG TABLET PO SCH ×3 (09:05→21:20)
[2018-11-06] MEDS: CIPROFLOXACIN 400mg IV 400 MG/200 ML BAG IV SCH ×2 (09:05→21:19)
[2018-11-06] MEDS: CITALOPRAM 10 MG TABLET PO SCH (09:05)
[2018-11-06] MEDS: ASPIRIN 81 MG CHEWABLE TABLET PO SCH (09:05)
[2018-11-06] MEDS: EZETIMIBE 10 MG TAB PO SCH (09:06)
[2018-11-06] MEDS: MECLIZINE HCL 12.5 MG TAB PO SCH ×3 (09:06→21:20)
[2018-11-06] MEDS: ALLOPURINOL 100 MG TAB PO SCH (09:06)
[2018-11-06] MEDS: VITAMIN D 400 UNIT TAB PO SCH (09:06)
--- NOTE | 2018-11-06 15:02 | RAD REPORT ---
EXAM DESCRIPTION: US - UPPER EXTREMITY VENOUS UNILATE - 11/06/2018 2:48 pm CLINICAL HISTORY: r/o DVT Right arm pain and swelling. COMPARISON: No comparisons FINDINGS: Right upper extremity venous system was interrogated with Doppler technique. Normal flow, compressibility and augmentation was noted. There is no DVT present. IMPRESSION: No evidence of right upper extremity deep venous thrombosis.
[2018-11-06] MEDS: ENSURE HIGH PROTEIN 237 ML CAN PO SCH (21:00)
--- NOTE | 2018-11-06 21:15 | PN ---
Date of Progress Note: 11/06/2018 History: The patient is doing well. Some redness and swelling of the right upper extremity. The pa tient denies any trauma. Medications: List reviewed. Physical Examination: Vital Signs: Temperature 97, heart rate 60, blood pressure 150/60, respirations 90% on room air. General: Awake, alert, oriented x3, elderly male, in no acute distress. Obese, BMI 30. CV: S1, S2. Regular rate and rhythm. Pulses present. Respiratory: Moving air well bilaterally. No wheezing. Gastrointestinal: Abdomen is soft. Mild tenderness to palpation. No rebound or guarding. Bowel so unds positive. Extremities: No clubbing, cyanosis, or edema. Neurologic: Nonfocal. Skin: Right upper extremity erythema, warm to touch and minimal swelling. Laboratory Data: Sodium 144, potassium 3.6, chloride 110, CO2 28, BUN 8, creatinine 0.95, glucose 14 4, calcium 7.9. WBC 7.7, H and H 10.9 and 32.3, platelets 449, neutrophils 69%. Doppler shows no ev idence of right upper extremity DVT. Assessment And Plan: An 83-year-old male with: 1.Abdominal abscess versus duodenal ulcer, improving. The patient is afebrile. White count is norm al. Continue with antibiotics. No surgical intervention at this time. 2.Acute dehydration, improved with IV fluids. The patient has decreased appetite. Encourage p.o. i ntake. 3.Generalized weakness. Continue physical therapy. The patient has significant disuse myopathy and deconditioning. 4.History of posttraumatic stress disorder, stable. 5.Obesity, BMI 30. 6.Gout, stable. 7.Depression and anxiety, stable. 8.Gastroesophageal reflux disease without esophagitis. Continue Protonix. 9.Benign prostatic hyperplasia, continue prazosin. 10.Essential hypertension, stable on home medications. Plan: Discharge to correction facility once accepted. We will continue to monitor right upper extremity redness and swelling. SA/MODL Voice ID: [id number] Report ID: [id number]
[2018-11-06] MEDS: PRAZOSIN HCL 1 MG CAP PO SCH (21:19)
[2018-11-06] MEDS: TRAZODONE 50 MG TABLET PO SCH (21:20)
[2018-11-07] MEDS: METRONIDAZOLE 500mg IVPB 500 MG/100 ML BAG IV SCH ×4 (00:55→17:35)
[2018-11-07] MEDS: PANTOPRAZOLE 40MG TABLET PO SCH (05:36)
[2018-11-07 06:15] LABS: BUN Blood Urea Nitrogen 7 mg/dL (7-18); Bicarbonate 29 mmol/L (21-32); Glucose Level 108 mg/dL (74-106); Potassium 3.7 mmol/L (3.5-5.1); Sodium Level 146 mmol/L (136-145)
[2018-11-07] MEDS ORDERED: POTASSIUM 25 MEQ EFFERV TAB PO ONE (09:00)
[2018-11-07] MEDS: DICLOFENAC SODIUM TP SCH ×2 (09:00→19:43)
[2018-11-07] MEDS: EZETIMIBE 10 MG TAB PO SCH (09:22)
[2018-11-07] MEDS: ALLOPURINOL 100 MG TAB PO SCH (09:22)
[2018-11-07] MEDS: VITAMIN D 400 UNIT TAB PO SCH (09:22)
[2018-11-07] MEDS: CITALOPRAM 10 MG TABLET PO SCH (09:22)
[2018-11-07] MEDS: BUSPIRONE HCL 5 MG TABLET PO SCH ×3 (09:22→21:18)
[2018-11-07] MEDS: CIPROFLOXACIN 400mg IV 400 MG/200 ML BAG IV SCH ×2 (09:22→21:17)
[2018-11-07] MEDS: ASPIRIN 81 MG CHEWABLE TABLET PO SCH (09:23)
[2018-11-07] MEDS: MECLIZINE HCL 12.5 MG TAB PO SCH ×3 (09:23→21:18)
[2018-11-07] MEDS: ENSURE HIGH PROTEIN 237 ML CAN PO SCH ×2 (09:23→21:00)
[2018-11-07] MEDS: NA CHLORIDE 0.9% 1,000 ML IV SCH ×2 (11:52→15:00)
[2018-11-07] MEDS: TRAZODONE 50 MG TABLET PO SCH (21:18)
[2018-11-07] MEDS: PRAZOSIN HCL 1 MG CAP PO SCH (21:18)
[2018-11-08] MEDS: METRONIDAZOLE 500mg IVPB 500 MG/100 ML BAG IV SCH ×4 (00:55→17:57)
[2018-11-08] MEDS: NA CHLORIDE 0.9% 1,000 ML IV SCH ×3 (01:00→11:00)
--- NOTE | 2018-11-08 02:58 | DS ---
Date of Discharge: 11/07/2018 Supervisor Seaming: Dr. Chamorro with General Surgery. Procedures: None. Admitting Diagnoses: 1.Acute dehydration. 2.Generalized weakness. 3.Hypoalbuminemia. 4.Obesity. Discharge Diagnoses: 1.Abdominal abscess versus duodenal ulcer, improving. No surgical intervention. 2.Acute dehydration, improved with IV fluids. 3.Generalized weakness. Continue physical therapy. 4.History of posttraumatic stress disorder, stable. 5.Obesity, BMI 30. 6.Gout, stable. 7.Depression and anxiety, stable. 8.GERD without esophagitis, on Protonix. 9.Benign prostatic hyperplasia, on prazosin. 10.Essential hypertension, stable. Hospital Course: The patient is an 83-year-old male with past medical history of gout, hypertension, depression, anxiety, BPH, anemia, history of head injury, comes in with dehydration and generalized weakness. The patient was very weak, found to be dehydrated, had some renal insufficiency. The juan m ent was started on IV fluids. Imaging studies including CT scan of the abdomen and pelvis showed a 5 x 3 cm, walled-off fluid collection along the posterior wall of the afferent limb or remnant duodenu m in the right upper quadrant, additional 6 x 2 cm fluid collection interposed between the gallbladde r and the liver; fluid collections, may be single complex collection, abscesses possible. Fluid manuela ection related to a duodenal ulcer is also possible. Gallbladder wall thickening was seen, could be primary cholecystitis or secondary response to the adjacent duodenum and fluid collection findings. No biliary tree dilatation. Minimal right pleural effusion with atelectasis. Prostatic hypertrophy projecting into the urinary bladder base. A 10-cm fatty mass position between the left gluteal muscu lature and the left iliac crest. No stranding or septation to suspect a more aggressive process. Dr Raciel Chamorro with General Surgery was contacted. He evaluated the patient, agreed with intra-abdominal abscess, likely a perforated ulcer that has sealed off. Due to the patient's age, being a poor surgi rocco candidate, and not requiring emergent surgical intervention at this time, plan was to continue an tibiotics and supportive therapy. The patient responded well to IV antibiotics. His white blood binh l count normalized. His pain also improved. The patient's cultures, however, grew out MRSA and Stap h aureus and Pantoea agglomerans. Blood cultures were negative to date. The patient was continued o n Cipro and Flagyl, which were sensitive to the cultures. The patient was then not really participat ing too well with physical therapy and required [facility] facility placement as his would be unable to take care of him. The patient was then referred to [facility] and was acc epted. He was cleared for discharge from surgical standpoint. Followup: He will need to follow up with his PCP in 2-3 days, follow up with surgeon, wilver Emerson 2 weeks. Return to ER for worsening condition. Repeat CT abdomen in 4 weeks for resolution of abs cess. Medications: As per medication reconciliation list. Physical Examination: General: Awake, alert, oriented x3. Elderly male, obese. CV: S1, S2. Regular rate and rhythm. Peripheral pulses present. Respiratory: Moving air well bilaterally. No wheezing or stridor. Gastrointestinal: Abdomen is soft. No tenderness to palpation. Bowel sounds positive. Extremities: No clubbing, cyanosis, or edema. Neurologic: Nonfocal. No signs of sepsis. Total time spent discharging the patient was 37 minutes. /YI Voice ID: [id number] Report ID: [id number]
[2018-11-08] MEDS: PANTOPRAZOLE 40MG TABLET PO SCH (05:51)
[2018-11-08 06:22] LABS: BUN Blood Urea Nitrogen 8 mg/dL (7-18); Bicarbonate 29 mmol/L (21-32); Glucose Level 110 mg/dL (74-106); Potassium 3.9 mmol/L (3.5-5.1); Sodium Level 144 mmol/L (136-145)
[2018-11-08] MEDS: ALLOPURINOL 100 MG TAB PO SCH (08:06)
[2018-11-08] MEDS: CITALOPRAM 10 MG TABLET PO SCH (08:06)
[2018-11-08] MEDS: EZETIMIBE 10 MG TAB PO SCH (08:06)
[2018-11-08] MEDS: VITAMIN D 400 UNIT TAB PO SCH (08:06)
[2018-11-08] MEDS: MECLIZINE HCL 12.5 MG TAB PO SCH ×2 (08:06→13:32)
[2018-11-08] MEDS: BUSPIRONE HCL 5 MG TABLET PO SCH ×2 (08:06→13:32)
[2018-11-08] MEDS: ASPIRIN 81 MG CHEWABLE TABLET PO SCH (08:06)
[2018-11-08] MEDS: CIPROFLOXACIN 400mg IV 400 MG/200 ML BAG IV SCH (08:07)
[2018-11-08] MEDS: DICLOFENAC SODIUM TP SCH (08:07)
[2018-11-08] MEDS: ENSURE HIGH PROTEIN 237 ML CAN PO SCH (08:08)
[2018-11-08] MEDS ORDERED: POTASSIUM 25 MEQ EFFERV TAB PO ONE (09:00)
[2018-11-08 10:25] VITALS: O2SAT 92
[2018-11-08] MEDS ORDERED: ENOXAPARIN 40 MG/0.4 ML SQ SCH (12:09)
[2018-11-08] MEDS: ACETAMINOPHEN 500 MG TAB PO PRN (14:55)
[2018-11-08 16:25] VITALS: BP 144/68; TEMP 97.8
--- NOTE | 2018-11-08 17:17 | PN ---
Date of Progress Note: 11/08/2018 History: The patient is seen and examined. Chart reviewed and case discussed with RN. The patient is still awaiting acceptance to facility as he is not really participating in physical therapy. He w ill need to go to [place]. Medications: List reviewed. Physical Examination: Vital Signs: Temperature 97.6, heart rate 88, blood pressure 143/72, respirations 19, and O2 of 95% on room air. General: Awake, alert, oriented x3. Elderly male, obese. CV: S1, S2. Regular rate and rhythm. Peripheral pulses present. Respiratory: Moving air well bilaterally. No wheezing. Gastrointestinal: Abdomen is soft, nontender, nondistended. Positive bowel sounds. Extremities: No clubbing, cyanosis, or edema. Neurologic: Nonfocal. Laboratory Data: Sodium 144, potassium 3.9, chloride 109, CO2 29, BUN 8, creatinine 0.77, glucose 11 0, calcium 8.3. WBC 7.7, H and H 7.9 and 32.3, platelets 449. Cultures, blood cultures are negative . Other body fluid cultures growing out Staph aureus and Pantoea agglomerans. Wound from the left n ose is MRSA positive. Assessment And Plan: An 83-year-old male with: 1.Abdominal abscess, improving. No surgical intervention at this time. White count is normal. The patient is afebrile. No signs of sepsis. Pain has resolved. 2.Acute dehydration, resolved. 3.Generalized weakness. The patient refusing physical therapy. 4.History of posttraumatic stress disorder stable. 5.Obesity, BMI 30. 6.Gout, stable. 7.Depression with anxiety, stable. 8.Gastroesophageal reflux disease without esophagitis. We will continue Protonix. 9.Benign prostatic hyperplasia, on prazosin. Urinary output is acceptable. 10.Essential hypertension, stable. 11.Deep vein thrombosis prophylaxis. We will add Lovenox. Plan: Discharge to [place] once accepted. /YI Voice ID: [id number] Report ID: [id number]
== END 2018-11-08 19:25 | DRG 682 ==
LOC: ER 18:28 → INTOOBSV 10-29 01:27 → OBSVTOIN 10-29 01:27 → ERHOLD 10-29 01:27 → 4TH 10-29 07:45 → OBSVTOIN 11-01 18:15
PROVIDERS: ADMIT Hospitalist; ATTEND Family Medicine
DX: N17.9 Acute kidney failure, unspecified (principal); K65.1 Peritoneal abscess; E43 Unspecified severe protein-calorie malnutrition; J90 Pleural effusion, not elsewhere classified; J98.11 Atelectasis; E86.0 Dehydration; K26.9 Duodenal ulcer, unspecified as acute or chronic, without hemorrhage or perforation; B95.62 Methicillin resistant Staphylococcus aureus infection as the cause of diseases classified elsewhere; B96.89 Other specified bacterial agents as the cause of diseases classified elsewhere; I10 Essential (primary) hypertension; E78.5 Hyperlipidemia, unspecified; F03.90 Unspecified dementia, unspecified severity, without behavioral disturbance, psychotic disturbance, mood disturbance, and anxiety; E88.09 Other disorders of plasma-protein metabolism, not elsewhere classified; F43.10 Post-traumatic stress disorder, unspecified; K21.9 Gastro-esophageal reflux disease without esophagitis; F32.9 Major depressive disorder, single episode, unspecified; F41.9 Anxiety disorder, unspecified; E66.9 Obesity, unspecified; N40.0 Benign prostatic hyperplasia without lower urinary tract symptoms; M10.9 Gout, unspecified; R53.1 Weakness; Z68.30 Body mass index [BMI] 30.0-30.9, adult; Z79.82 Long term (current) use of aspirin
CPT/HCPCS: 36415; 71045; 74019; 74177; 80048; 80053; 80076; 81001; 81003; 81015; 83605; 83735; 83880; 84132; 84145; 84484; 85025; 85610; 87040; 87070; 87077; 87086; 87088; 87186; 87205; 93005; 93971; 96360; 97110; 97116; 97163; 97530; 99285; G0378; J0744; J1650; J2405; J7030; Q9967